=== PATIENT | female | born 1950 | race Caucasian/White ===

== ENCOUNTER 2022-08-13 08:51 | Emergency (ER) | payer OTHER, MEDICAID ==
[~2022-08-13] VITALS: Ht 165.1 cm; Wt 77.2 kg
[~2022-08-13 08:51] MED LIST: LORA-205 PO; TRAM50TA2 PO; VALS160T4 PO
[2022-08-13 09:53] LABS: Basophils # (auto) 0.1 10 ^3/uL (0-0.2); Basophils % (auto) 0.8 % (0.0-2.0); Eosinophils # (auto) 0.1 10 ^3/uL (0-0.8); Eosinophils % (auto) 1.3 % (0.0-7.0); Hemoglobin 16.2 g/dL (12.2-16.2); Lymphocytes # (auto) 2.2 10 ^3/uL (0.4-5.4); Lymphocytes % (auto) 24.4 % (10.0-50.0); Mean Corpuscular Hemoglobin 32.7 pg (28.0-32.0); Mean Corpuscular Hgb Conc. 34.4 g/dL (32.0-36.0); Mean Corpuscular Volume 95.1 fL (80.0-100.0); Monocytes # (auto) 0.8 10 ^3/uL (0-1.3); Monocytes % (auto) 9.2 % (0.0-12.0); Neutrophils # (auto) 5.7 10 ^3/uL (1.6-8.6); Neutrophils % (auto) 64.3 % (37.0-80.0); Nucleated Red Blood Cells % 0.1 %; Red Blood Cells 4.95 10^6/uL (4.0-5.20); Red Cell Distribution Width 13.7 % (11.8-14.3); White Blood Cell 8.9 10^3/uL (4.4-10.8)
[2022-08-13 10:11] LABS: Albumin 3.7 g/dL (3.4-5.0); BUN/Creatinine Ratio 14.3 (10.0-20.0); Calcium 9.7 mg/dL (8.5-10.1); Magnesium 2.3 mg/dL (1.6-2.6); Potassium 3.9 mmol/L (3.5-5.1)
[2022-08-13 10:13] LABS: Bilirubin, Total 0.5 mg/dL (0.2-1.0)
[2022-08-13] MEDS ORDERED: IPRATROPIUM BROM 0.5 MG/2.5ML INH SOL NEB ONE (10:15)
[2022-08-13] MEDS ORDERED: cefTRIAXone 1GM/50ML D5W 50 ML IV ONE (10:15)
[2022-08-13] MEDS ORDERED: methylPREDNISolone SOD SUCC 125 MG/2 ML VL IV ONE (10:15)
[2022-08-13] MEDS ORDERED: ALBUTEROL SULF 2.5 MG/0.5ML(0.5%) NEB SOLN NEB ONE (10:15)
[2022-08-13 12:31] VITALS: BP 129/61
[2022-08-13 12:46] LABS: Urine Bacteria MOD /hpf (None Seen); Urine Blood Negative /uL (Negative); Urine Mucus MODERATE (None Seen); Urine Specific Gravity 1.019 (1.001-1.035); Urine WBC 48 /hpf (0 - 5)
[2022-08-13] MEDS ORDERED: BACDST PO (14:27)
== END 2022-08-13 14:31 | disposition home or self-care (01) ==
LOC: EDUNIT# 08:51 → EDBD 08:51 → ER 08:51
DX: J40 Bronchitis, not specified as acute or chronic (principal); N39.0 Urinary tract infection, site not specified; J44.9 Chronic obstructive pulmonary disease, unspecified; F17.210 Nicotine dependence, cigarettes, uncomplicated; Z79.899 Other long term (current) drug therapy
CPT/HCPCS: 36415; 71046; 80053; 81001; 83735; 83880; 84484; 85025; 85379; 93005; 94640; 96365; 96375; 99285; J0696; J2930; J7644

== ENCOUNTER 2024-01-04 12:49 | Emergency (ER) | payer OTHER, MEDICAID ==
[~2024-01-04] VITALS: Ht 149.9 cm; Wt 125.0 kg
[~2024-01-04 12:49] MED LIST changes: +BACDST PO
--- NOTE | 2024-01-04 12:57 | ED.PDOC ---
HPI (NEURO) HPI Comments HPI: Poor Historian. 73-year-old female brought in by ambulance from home for near-syncope/dizziness episode. There was no loss of consciousness. No fall or trauma or injury. Patient took her morning medications of blood pressure medications and lorazepam. The patient went to the hair salon and then went back home. The patient had another episode of dizziness. Is non vertigo-like. Patient felt like she was going to pass out when she was standing up. Per EMS, pre-hospital course vital signs were stable. Blood sugar was normal. No neurological deficits. Denies any chest pain or shortness of breath. Vitals: Temp: 97.9 F Heart rate: 79 RR: 18 BP: 148/86 02 sat: 97% on room air PMH: HTN, hyperlipidemia, anxiety PSH: denies social history: endorses tobacco use, denies ETOH use, denies drug use medications: atorvastatin, amlodipine, valsartan, lorazepam allergies: NKDA REVIEW OF SYSTEMS: CONSTITUTIONAL: Denies acute: fever, diaphoresis, chills, generalized weakness. HEAD: Denies acute: headache, photophobia Eyes: Denies acute: Double vision, vision loss, eye pain, eye discharge. EARS: Denies acute: tinnitus, hearing loss, ear discharge, ear pain, THROAT: Denies acute: sore throat, swelling, difficulty swallowing , pain with swallowing, change in voice. NECK: Denies acute: neck pain, neck swelling, stiff neck. HEART: Denies acute : chest pain, palpitations, LUNGS: Denies acute: SOB, wheezing, cough, hemoptysis ABDOMEN: Denies acute: abdominal pain, Nausea, Vomiting, diarrhea, melena , hematemesis, hematochezia SKIN: Denies acute: rash, redness, lesions, itchiness. EXTREMITIES: Denies acute: calf pain, numbness, tingling, weakness, denies pain in extremity. Denies acute: Low back pain. Neuro: Denies acute: focal neurological deficit, motor or sensory focal neurological deficit, tremors, seizure like activity, confusion, change in mental status, loss of bowel or bladder function, cauda equina like symptoms. : Denies acute: dysuria, hematuria, flank pain, increase in urinary frequency. PSYCH: Denies acute: hallucination, suicidal ideation, homicidal ideation. FEMALE: Denies acute: abnormal vaginal bleeding, foul odor, unusual discharge. PHYSICAL EXAM: General: no acute distress, awake and alert. Head: normocephalic, atraumatic. Neck: supple, trachea is midline, no swelling. Throat: Normal phonation. Eyes:, no erythema, no purulent discharge, no proptosis, no icterus. Heart: regular rate, regular rhythm, no significant murmur appreciated. Lungs: no apparent respiratory distress, Able to speak in full sentences. No wheezing, no rhonchi, no crackles. No stridors Clear to auscultation bilaterally. Abdomen: non tender to palpation, non distended, soft, no guarding, no rebound, + bowel sounds. Neuro: Awake, Alert, oriented to name, self, situation, follows commands GCS=15. Speech is normal. Skin: no petechia, no purpura, no cyanosis, non-pale, not jaundice. Lower extremities: --trace bilateral - Pitting edema no deformity, no focal swelling, no calf TTP. Makes eye contact. moves all four extremities. Face: no apparent facial droop. Ears: Normal appearing TM b/l, PERRLA, EOM-I CN 2-12 are grossly intact, No nystagmus. No nuchal rigidity, Kernig's sign, Brudzinski's sign, no meningeal signs. 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 Was a procedure done?: No Differential Diagnosis (SZ) Seizure: N/A General Weakness: Other (Includes but not limited to thyroid disease, encephalopathy, electrolyte abnormality, sepsis, infection, intracranial pathology, drug adverse effects, arrhythmia, kidney insufficiency, ACS, CVA, malignancy, anemia, dehydration, orthostatic hypotension) X-Ray, Labs, Meds, VS Vital Signs Date Time Temp Pulse Resp B/P (MAP) Pulse Ox O2 Delivery O2 Flow Rate FiO2 11/5/24 15:29 140/70 01/04/24 15:22 81 14 95 Room Air 01/04/24 15:22 97.9 81 14 140/70 (93) 95 97.9 01/04/24 15:11 88 01/04/24 12:58 97.9 86 18 148/86 (106) 97 01/04/24 12:57 85 Lab Test 01/04/24 15:07 01/04/24 14:43 01/04/24 14:33 01/04/24 13:13 Range/Units Troponin I High Sensitivity < 3 L < 3 L < 3 L </=34 ng/L Urine Color Colorless Yellow Urine Clarity Clear Clear Urine pH 6.5 5.0-9.0 Urine Specific [place] 1.002 1.001-1.035 Urine Protein Negative Negative Urine Ketones Negative Negative Urine Blood Negative Negative /uL Urine Nitrite Negative Negative Urine Bilirubin Negative Negative Urine Urobilinogen Normal Negative mg/dL Urine Leukocyte Esterase 1+ Negative /uL Urine RBC 1 0 - 4 /hpf Urine WBC 3 0 - 5 /hpf Urine Squamous Epithelial Cells Few <5 /hpf Urine Bacteria None seen None Seen /hpf Urine Hyaline Casts Few 0 - 2 /lpf Urine Glucose Normal Normal mg/dL White Blood Count 9.5 4.4-10.8 10^3/uL Red Blood Count 4.96 4.0-5.20 10^6/uL Hemoglobin 16.0 12.2-16.2 g/dL Hematocrit 47.6 H 36.0-46.0 % Mean Corpuscular Volume 95.9 80.0-100.0 fL Mean Corpuscular Hemoglobin 32.4 H 28.0-32.0 pg Mean Corpuscular Hemoglobin Concent 33.7 32.0-36.0 g/dL Red Cell Distribution Width 13.8 11.8-14.3 % Platelet Count 215 140-450 10^3/uL Mean Platelet Volume 8.3 6.9-10.8 fL Neutrophils (%) (Auto) 57.6 37.0-80.0 % Lymphocytes (%) (Auto) 31.5 10.0-50.0 % Monocytes (%) (Auto) 8.9 0.0-12.0 % Eosinophils (%) (Auto) 1.4 0.0-7.0 % Basophils (%) (Auto) 0.6 0.0-2.0 % Neutrophils # (Auto) 5.5 1.6-8.6 10 ^3/uL Lymphocytes # (Auto) 3.0 0.4-5.4 10 ^3/uL Monocytes # (Auto) 0.8 0-1.3 10 ^3/uL Eosinophils # (Auto) 0.1 0-0.8 10 ^3/uL Basophils # (Auto) 0.1 0-0.2 10 ^3/uL Nucleated Red Blood Cells 0.1 % Sodium Level 137 136-145 mmol/L Potassium Level 3.6 3.5-5.1 mmol/L Chloride Level 107 98-107 mmol/L Carbon Dioxide Level 28 20-31 mmol/L Anion Gap 2 L 5-15 Blood Urea Nitrogen 5 L 9-23 mg/dL Creatinine 0.49 L 0.550-1.02 mg/dL Glomerular Filtration Rate Calc 99 >90 mL/min BUN/Creatinine Ratio 10.2 10.0-20.0 Serum Glucose 105 74-106 mg/dL Lactic Acid Level 1.6 0.4-2.0 mmol/L Calcium Level 10.5 H 8.7-10.4 mg/dL B-Type Natriuretic Peptide 10.91 0-100 pg/mL Current Medications Medications (Trade) Dose Ordered Sig/Leann Route Start Time Stop Time Status Last Admin Furosemide (Lasix Tablet) 20 mg ONCE ONCE PO 01/04/24 15:00 01/04/24 15:24 DC 01/04/24 15:29 [place] [id number] Ph: [phone] DIAGNOSTIC IMAGING Diagnostic Imaging Report : [id number] Signed PATIENT: THERESA ALFARO ACCT: [id number] UNIT: [id number] : 1950 LOC: ER ROOM / BED: / AGE / SEX: 73 / F ADM STATUS: REG ER SERVICE 1256 ORDERING PHYSICIAN: STEPHANIE NEW DO PROCEDURE(s): CXRP - CHEST PORTABLE REASON: dizziness episode ORDER NUMBER(s): [id number], ACCESSION NUMBER(s): [id number] CHEST RADIOGRAPH Indication:dizziness episode Technique: Single frontal view of the chest was obtained Comparison: None FINDINGS: Lines and Tubes: None Lungs: No focal consolidation. Mild interstitial prominence. Redemonstration of fullness of the right paratracheal region; unchanged from prior imaging Pleura: No effusion. No pneumothorax. Cardiomediastinal contours: Borderline cardiomegaly. Bones: No acute osseous abnormality. IMPRESSION: Mild pulmonary vascular congestion. ATED BY: SANAZ POLANCO DO DICTATED DATE/TIME: 01/04/24 1354 SIGNED BY: SANAZ POLANCO DO SIGNED DATE/TIME: 01/04/24 1354 CC: Time of 1ST Reevaluation: 19:31 Reevaluation 1ST: N/A (Patient eloped) Patient Education/Counseling: Diagnosis, Treatment Family Education/Counseling: No Family Present Comments Patient eloped Departure 1 Departure Time of Disposition: 18:55 Impression: Primary Impression: Eloped from emergency department Additional Impression: Episode of dizziness Disposition: 07 LEFT AWOL/ELOPED Condition: Stable Additional Instructions: Patient eloped Discharged With: Self Critical Care Note Critical Care Time?: No Heart Score Heart Score: Heart Score Response (Comments) Value History Slightly Suspicious 0 EKG Normal 0 Age >65 2 Risk Factors 1 or 2 risk factors 1 Troponin Normal limit 0 Total 3 I personally scribed for STEPHANIE NEW DO ([email or web address]) on 01/04/24 at 12:57. Electronically submitted by Keira Preciado ([email or web address]). I personally scribed for STEPHANIE NEW DO ([email or web address]) on 01/04/24 at 13:12. Electronically submitted by Keira Preciado ([email or web address]). I personally scribed for STEPHANIE NEW DO ([email or web address]) on 01/04/24 at 13:24. Electronically submitted by Keira Preciado ([email or web address]). I personally scribed for STEPHANIE NEW DO ([email or web address]) on 01/04/24 at 14:02. Electronically submitted by Keira Preciado ([email or web address]). I personally scribed for STEPHANIE NEW DO ([email or web address]) on 01/04/24 at 16:15. Electronically submitted by Keira Preciado ([facility]). I personally scribed for STEPHANIE NEW DO ([facility]) on 01/04/24 at 19:30. Electronically submitted by Keira Preciado ([facility] STEPHANIE NEW DO Jan 04, 2024 12:57
--- NOTE | 2024-01-04 12:59 | ECG ---
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
[2024-01-04 13:45] LABS: Basophils # (auto) 0.1 10 ^3/uL (0-0.2); Basophils % (auto) 0.6 % (0.0-2.0); Eosinophils # (auto) 0.1 10 ^3/uL (0-0.8); Eosinophils % (auto) 1.4 % (0.0-7.0); Hematocrit 47.6 % (36.0-46.0); Lymphocytes % (auto) 31.5 % (10.0-50.0); Mean Corpuscular Hemoglobin 32.4 pg (28.0-32.0); Mean Corpuscular Hgb Conc. 33.7 g/dL (32.0-36.0); Mean Corpuscular Volume 95.9 fL (80.0-100.0); Monocytes # (auto) 0.8 10 ^3/uL (0-1.3); Monocytes % (auto) 8.9 % (0.0-12.0); Neutrophils # (auto) 5.5 10 ^3/uL (1.6-8.6); Neutrophils % (auto) 57.6 % (37.0-80.0); Nucleated Red Blood Cells % 0.1 %; Platelet Count (auto) 215 10^3/uL (140-450); Red Blood Cells 4.96 10^6/uL (4.0-5.20); Red Cell Distribution Width 13.8 % (11.8-14.3); White Blood Cell 9.5 10^3/uL (4.4-10.8)
[2024-01-04 13:54] LABS: Chloride 107 mmol/L (98-107); Potassium 3.6 mmol/L (3.5-5.1); Sodium 137 mmol/L (136-145)
[2024-01-04 13:55] LABS: Anion Gap 2 (5-15); Calcium 10.5 mg/dL (8.7-10.4); Carbon Dioxide 28 mmol/L (20-31)
--- NOTE | 2024-01-04 13:56 | DVH ---
CHEST RADIOGRAPH Indication:dizziness episode Technique: Single frontal view of the chest was obtained Comparison: None FINDINGS: Lines and Tubes: None Lungs: No focal consolidation. Mild interstitial prominence. Redemonstration of fullness of the right paratracheal region; unchanged from prior imaging Pleura: No effusion. No pneumothorax. Cardiomediastinal contours: Borderline cardiomegaly. Bones: No acute osseous abnormality. IMPRESSION: Mild pulmonary vascular congestion.
[2024-01-04 14:00] LABS: BUN/Creatinine Ratio 10.2 (10.0-20.0); Blood Urea Nitrogen 5 mg/dL (9-23); Glucose 105 mg/dL (74-106)
[2024-01-04 14:33] LABS: Urine Bacteria None Seen /hpf (None Seen)
[2024-01-04 14:44] LABS: Urine Blood Negative /uL (Negative); Urine Clarity Clear (Clear); Urine Color Colorless (Yellow); Urine Hyaline Cast FEW /lpf (0 - 2); Urine Protein, UAD Negative (Negative); Urine Specific Gravity 1.002 (1.001-1.035); Urine Urobilinogen Normal (Negative); Urine WBC 3 /hpf (0 - 5); Urine pH 6.5 (5.0-9.0)
[2024-01-04 15:22] VITALS: BP 140/70; PULSE 81; RESP 14; TEMP 97.9; O2SAT 95
[2024-01-04] MEDS: FUROSEMIDE 20 MG TAB PO ONE (15:29)
--- NOTE | 2024-01-05 09:32 | ECG ---
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
== END 2024-01-04 19:32 | disposition left against medical advice (07) ==
LOC: EDBD 12:49 → ER 12:52
DX: R42 Dizziness and giddiness (principal); I10 Essential (primary) hypertension; E78.5 Hyperlipidemia, unspecified; F41.9 Anxiety disorder, unspecified; Z88.8 Allergy status to other drugs, medicaments and biological substances
CPT/HCPCS: 36415; 71045; 80048; 81001; 83605; 83880; 84484; 85025; 93005

== ENCOUNTER 2024-01-08 11:25 | Inpatient (IN) | payer OTHER, MEDICAID ==
[~2024-01-08] VITALS: Ht 165.1 cm; Wt 83.9 kg
[2024-01-08 11:40] VITALS: PULSE 86; RESP 16; O2SAT 98
--- NOTE | 2024-01-08 11:46 | ED.PDOC ---
HPI Comments 73Y F with PMHx HTN, HLD, CHF, and anxiety presents to ED via EMS for chief complaint palpitations. Pt denies SOB and chest pain. Pt left [facility] ER on 01/04/2024 AMA with dx acute mild pulmonary congestion. Pt began to take Lasix this morning. Pt was advised to call 911 by PCP if palpitations lasted longer than 10mins. Upon EMS arrival, HR 96 and BS 130. Pt presents to ED with bilateral leg edema and states it was previously up to her thigh. Pt was previously taking HCTZ but now started Lasix as well. Pt smokes cigarettes and drinks alcohol occasionally. No illicit drug use. No known allergies. Time Seen by MD: 11:30 Primary Care Provider: CHANG Navarrete Notes: Medications, Allergies Allergies: Coded Allergies: NO KNOWN ALLERGIES (Unverified , 12/15/11) Home Meds Active Scripts Sulfamethoxazole W/Trimethopri (Bactrim Ds Tablet) 1 Tab Tb, 1 TAB PO BID for 5 Days, #10 TAB Prov:YULISSA KOO MD 08/13/22 Reported Medications Lorazepam (Ativan) 1 Mg Tab, 1 MG PO PRN 12/15/11 Tramadol Hcl (Tramadol Hcl) 50 Mg Tab, 50 MG PO HS 12/15/11 Valsartan (Diovan) 160 Mg Tab, 160 MG PO DAILY 12/15/11 Information Source: Patient, Emergency Med Personnel Mode of Arrival: EMS Brought in by: EMS Severity: Mild Timing: Hours Duration: Since onset Prehospital treatment: None Onset: At Rest, With Light Exertion Cardiac Risk Factors: Smoker, Hyperlipidemia, HTN PE Risk Factors: None History of: None Modifying Factors: Nothing Associated Signs and Symptoms: Palpitations Past Medical History PAST MEDICAL HISTORY: CHF, COPD, High Lipids, HTN Surgical History: Denies all surgeries 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 Family History Family History: Unobtainable Social History Smoker: Cigarettes, Less Than 1 Pack/Day Alcohol: Occasionally Drugs: Denies Drug Use Lives In: Home Constitutional: denies: chills, diaphoresis, fatigue, fever, malaise, sweats, weakness, others EENTM: denies: blurred vision, double vision, ear bleeding, ear discharge, ear drainage, ear pain, ear ringing, eye pain, eye redness, hearing loss, mouth pain, mouth swelling, nasal discharge, nose bleeding, nose congestion, nose pain, photophobia, tearing, throat pain, throat swelling, voice changes, others Respiratory: denies: cough, hemoptysis, orthopnea, SOB at rest, shortness of breath, SOB with excertion, stridor, wheezing, others Cardiovascular: reports: edema, palpitations; denies: chest pain, dizzy spells, diaphoresis, Dyspnea on exertion, irregular heart beat, left arm pain, lightheadedness, PND, syncope, others Gastrointestinal: denies: abdomen distended, abdominal pain, blood streaked bowels, constipated, diarrhea, dysphagia, difficulty swallowing, hematemesis, melena, nausea, poor appetite, poor fluid intake, rectal bleeding, rectal pain, vomiting, others Genitourinary: denies: abnormal vagina bleeding, burning, dyspareunia, dysuria, flank pain, frequency, hematuria, incontinence, pain, , vagina discharge, urgency, others Neurological: denies: dizziness, fainting, headache, left sided numbness, left sided weakness, numbness, paresthesia, pre-existing deficit, right sided numbness, right sided weakness, seizure, speech problems, tingling, tremors, weakness, others Musculoskeletal: denies: back pain, gout, joint pain, joint swelling, muscle pain, muscle stiffness, neck pain, others Integumetry: denies: bruises, change in color, change in hair/nails, dryness, laceration, lesions, lumps, rash, wounds, others Allergic/Immunocompromised: denies: Difficulty Healing, Frequent Infections, Hives, Itching, others Hematologic/Lymphatic: denies: anemia, blood clots, easy bleeding, easy bruising, swollen glands, others Endocrine: denies: excessive hunger, excessive sweating, excessive thirst, excessive urination, flushing, intolerance to cold, intolerance to heat, unexplained weight gain, unexplained weight loss, others Psychiatric: denies: anxiety, bipolar disorder, depression, hopeless, panic disorder, schizophrenia, sleepless, suicidal, others All Other Systems: Reviewed and Negative Physical Exam General Appearance: No Apparent Distress, Normal HEENT: Normal ENT Inspection, Pharynx Normal, TMs Normal Neck: Full Range of Motion, Non-Tender, Normal, Normal Inspection Respiratory: Chest Non-Tender, Crackles (left lower lung), No Accessory Muscle Use, No Respiratory Distress Cardiovascular: No JVD, No Murmur, No Gallop, Normal Peripheral Pulses, Regular Rate/Rhythm Breast Exam: Deferred Gastrointestinal: No Organomegaly, Non Tender, No Pulsatile Mass, Normal Bowel Sounds, Soft Genitalia: Deferred Pelvic: Deferred Rectal: Deferred Extremities: Leg edema (bilateral lower extremities: trace pitting edema), No calf tenderness, Normal capillary refill, Normal range of motion, Non-tender Musculoskeletal : Apperance: Normal Neurologic: Alert, communications engineer II-XII nml as Tested, No Motor Deficits, Normal Affect, Normal Mood, No Sensory Deficits Cerebellar Function: Normal Reflexes: Normal Skin: Dry, Normal Color, Warm Lymphatic: No Adenopathy EKG EKG : Comments Rate of 86, inverted T-waves in 3 and AVF, normal sinus rhythm Was a procedure done? Was a procedure done?: No CP Differential Dx Differential Diagnosis: A-fib, Anxiety / Panic Attack, Atrial Dysrhythmia, Heart Failure, PSVT Differential Diagnosis: CHF X-Ray, Labs, Meds, VS Vital Signs Date Time Temp Pulse Resp B/P (MAP) Pulse Ox O2 Delivery O2 Flow Rate FiO2 01/08/24 12:36 77 01/08/24 12:14 120/59 01/08/24 11:40 86 16 98 Room Air* 0 21 01/08/24 11:40 98.3 86 16 120/59 (79) 98 98.3 01/08/24 11:39 98.6 96 18 122/77 (92) 96 01/08/24 11:27 86 Lab Test 01/08/24 12:50 01/08/24 12:02 01/08/24 11:47 Range/Units Troponin I High Sensitivity < 3 L < 3 L </=34 ng/L White Blood Count 9.7 4.4-10.8 10^3/uL Red Blood Count 5.05 4.0-5.20 10^6/uL Hemoglobin 16.6 H 12.2-16.2 g/dL Hematocrit 48.3 H 36.0-46.0 % Mean Corpuscular Volume 95.6 80.0-100.0 fL Mean Corpuscular Hemoglobin 32.9 H 28.0-32.0 pg Mean Corpuscular Hemoglobin Concent 34.4 32.0-36.0 g/dL Red Cell Distribution Width 13.6 11.8-14.3 % Platelet Count 219 140-450 10^3/uL Mean Platelet Volume 8.6 6.9-10.8 fL Neutrophils (%) (Auto) 54.6 37.0-80.0 % Lymphocytes (%) (Auto) 33.1 10.0-50.0 % Monocytes (%) (Auto) 10.6 0.0-12.0 % Eosinophils (%) (Auto) 0.9 0.0-7.0 % Basophils (%) (Auto) 0.8 0.0-2.0 % Neutrophils # (Auto) 5.3 1.6-8.6 10 ^3/uL Lymphocytes # (Auto) 3.2 0.4-5.4 10 ^3/uL Monocytes # (Auto) 1.0 0-1.3 10 ^3/uL Eosinophils # (Auto) 0.1 0-0.8 10 ^3/uL Basophils # (Auto) 0.1 0-0.2 10 ^3/uL Nucleated Red Blood Cells 0.1 % Sodium Level 137 136-145 mmol/L Potassium Level 3.5 3.5-5.1 mmol/L Chloride Level 103 98-107 mmol/L Carbon Dioxide Level 30 20-31 mmol/L Anion Gap 4 L 5-15 Blood Urea Nitrogen 6 L 9-23 mg/dL Creatinine 0.52 L 0.550-1.02 mg/dL Glomerular Filtration Rate Calc 98 >90 mL/min BUN/Creatinine Ratio 11.5 10.0-20.0 Serum Glucose 117 H 74-106 mg/dL Calcium Level 10.8 H 8.7-10.4 mg/dL Magnesium Level 2.0 1.6-2.6 mg/dL Total Bilirubin 0.5 0.2-1.0 mg/dL Aspartate Amino Transferase (AST) 18 13-40 U/L Alanine Aminotransferase (ALT) 21 7-40 U/L Alkaline Phosphatase 146 H 46-116 U/L B-Type Natriuretic Peptide 7.13 0-100 pg/mL Total Protein 7.0 5.7-8.2 g/dL Albumin 4.3 3.2-4.8 g/dL Thyroid Stimulating Hormone (TSH) 1.30 0.55-4.78 uIU/mL Urine Color Colorless Yellow Urine Clarity Clear Clear Urine pH 6.5 5.0-9.0 Urine Specific [place] 1.002 1.001-1.035 Urine Protein Negative Negative Urine Ketones Negative Negative Urine Blood Negative Negative /uL Urine Nitrite Negative Negative Urine Bilirubin Negative Negative Urine Urobilinogen Normal Negative mg/dL Urine Leukocyte Esterase Trace Negative /uL Urine RBC 1 0 - 4 /hpf Urine WBC 3 0 - 5 /hpf Urine Squamous Epithelial Cells Few <5 /hpf Urine Bacteria Few H None Seen /hpf Urine Glucose Normal Normal mg/dL Current Medications Medications (Trade) Dose Ordered Sig/Leann Route Start Time Stop Time Status Last Admin Furosemide (Lasix Injection) 40 mg ONCE ONCE IV 01/08/24 11:30 01/08/24 11:42 DC 01/08/24 12:14 [place] [address] Ph: [phone] DIAGNOSTIC IMAGING Diagnostic Imaging Report : [id number] Signed PATIENT: THERESA ALFARO ACCT: [id number] UNIT: [id number] : 1950 LOC: ER ROOM / BED: / AGE / SEX: 73 / F ADM STATUS: REG ER SERVICE 1129 ORDERING PHYSICIAN: ROMY STEPHENS MD PROCEDURE(s): CXR2 - CHEST TWO VIEWS ROUTINE REASON: palpitations ORDER NUMBER(s): [id number], ACCESSION NUMBER(s): [id number] Procedure: XY CHEST TWO VIEWS ROUTINE 01/08/2024 11:48 AM Indication: palpitations. Comparison: XY CHEST TWO VIEWS ROUTINE on DOS: 08/13/22 TECHNIQUE: XY CHEST TWO VIEWS ROUTINE FINDINGS: Medical devices: None. Cardiomediastinal: The heart is normal in size. Pulmonary vasculature is within normal limits. Atherosclerotic calcification of the aortic arch noted. Lungs: No focal pulmonary opacity is seen. The costophrenic angles are clear. No pneumothorax. 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 IMPRESSION: 1. No acute cardiopulmonary disease. ATED BY: FATUMA RAMSAY MD DICTATED DATE/TIME: 01/08/241207 SIGNED BY: FATUMA RAMSAY MD SIGNED DATE/TIME: 01/08/241207 CC: 73-year-old female presents here with palpitations. She states that any time she exerts herself she begins to have palpitations. Blood work has been done including troponin which is negative. EKG demonstrates inverted T-waves in inferior leads. At this time I re-evaluated the patient and patient was doing okay but she states she went to the bathroom and immediately had increased palpitations. At this time I am concerned about possible arrhythmia as well as acute coronary syndrome. Hospitalist has been consulted for admission. Time of 1ST Reevaluation: 12:00 Reevaluation 1ST: Unchanged Time of 2ND Reevaluation: 14:14 Reevaluation 2ND: Unchanged Patient Education/Counseling: Diagnosis, Treatment Family Education/Counseling: No Family Present Departure 1 Departure Time of Disposition: 13:30 Impression: Primary Impression: Palpitations Disposition: ADMITTED INPATIENT Condition: Guarded Critical Care Note Critical Care Time?: No Stability Stability form required: No Heart Score Heart Score: Heart Score Response (Comments) Value History Moderate Suspicious 1 EKG Repolarization Disturb 1 Age >65 2 Risk Factors >3 or Hx ASHD 2 Troponin Normal limit 0 Total 6 I personally scribed for ROMY STEPHENS MD ([email or web address]) on 01/08/24 at 11:45. Electronically submitted by Maryuri Brandon ([employer]). I personally scribed for ROMY STEPHENS MD ([email or web address]) on 01/08/24 at 13:34. Electronically submitted by Maryuri Brandon ([employer]). I personally scribed for ROMY STEPHENS MD ([email or web address]) on 01/08/24 at 13:39. Electronically submitted by Maryuri Brandon ([employer]). ROMY STEPHENS MD Jan 08, 2024 11:45
--- NOTE | 2024-01-08 12:10 | DVH ---
Procedure: XY CHEST TWO VIEWS ROUTINE 01/08/2024 11:48 AM Indication: palpitations. Comparison: XY CHEST TWO VIEWS ROUTINE on DOS: 08/13/22 TECHNIQUE: XY CHEST TWO VIEWS ROUTINE FINDINGS: Medical devices: None. Cardiomediastinal: The heart is normal in size. Pulmonary vasculature is within normal limits. Athero sclerotic calcification of the aortic arch noted. Lungs: No focal pulmonary opacity is seen. The costophrenic angles are clear. No pneumothorax. Bones/soft tissues: Flowing anterior osteophytes are seen at least 4 consecutive levels with preserva tion of disc heighst compatible with diffuse idiopathic skeletal hyperostosis of the thoracic spine. IMPRESSION: 1. No acute cardiopulmonary disease.
[2024-01-08] MEDS: FUROSEMIDE 40 MG/4 ML VIAL IV ONE (12:14)
[2024-01-08 12:23] LABS: Basophils # (auto) 0.1 10 ^3/uL (0-0.2); Basophils % (auto) 0.8 % (0.0-2.0); Eosinophils # (auto) 0.1 10 ^3/uL (0-0.8); Eosinophils % (auto) 0.9 % (0.0-7.0); Hematocrit 48.3 % (36.0-46.0); Hemoglobin 16.6 g/dL (12.2-16.2); Lymphocytes # (auto) 3.2 10 ^3/uL (0.4-5.4); Lymphocytes % (auto) 33.1 % (10.0-50.0); Mean Corpuscular Hemoglobin 32.9 pg (28.0-32.0); Mean Corpuscular Hgb Conc. 34.4 g/dL (32.0-36.0); Mean Corpuscular Volume 95.6 fL (80.0-100.0); Monocytes % (auto) 10.6 % (0.0-12.0); Neutrophils # (auto) 5.3 10 ^3/uL (1.6-8.6); Neutrophils % (auto) 54.6 % (37.0-80.0); Nucleated Red Blood Cells % 0.1 %; Platelet Count (auto) 219 10^3/uL (140-450); Red Blood Cells 5.05 10^6/uL (4.0-5.20); Red Cell Distribution Width 13.6 % (11.8-14.3); White Blood Cell 9.7 10^3/uL (4.4-10.8)
[2024-01-08 12:33] LABS: Urine Bacteria FEW /hpf (None Seen); Urine Blood Negative /uL (Negative); Urine Clarity Clear (Clear); Urine Color Colorless (Yellow); Urine Protein, UAD Negative (Negative); Urine Specific Gravity 1.002 (1.001-1.035); Urine Urobilinogen Normal (Negative); Urine WBC 3 /hpf (0 - 5); Urine pH 6.5 (5.0-9.0)
[2024-01-08 12:47] LABS: Alanine Aminotransferase 21 U/L (7-40); Albumin 4.3 g/dL (3.2-4.8); Alkaline Phosphatase 146 U/L (46-116); Anion Gap 4 (5-15); Aspartate Aminotransferase 18 U/L (13-40); BUN/Creatinine Ratio 11.5 (10.0-20.0); Blood Urea Nitrogen 6 mg/dL (9-23); Calcium 10.8 mg/dL (8.7-10.4); Carbon Dioxide 30 mmol/L (20-31); Chloride 103 mmol/L (98-107); Glucose 117 mg/dL (74-106); Potassium 3.5 mmol/L (3.5-5.1); Sodium 137 mmol/L (136-145)
[2024-01-08 12:48] LABS: Bilirubin, Total 0.5 mg/dL (0.2-1.0)
[2024-01-08] MEDS ORDERED: NITROGLYCERIN 0.4 MG SL TAB SL PRN ×2 (18:30)
[2024-01-08] MEDS ORDERED: ACETAMINOPHEN 325 MG TAB PO PRN (18:30)
[2024-01-08] MEDS ORDERED: ONDANSETRON HCL 4 MG/2 ML VIAL IV PRN (18:30)
[2024-01-08] MEDS ORDERED: MORPHINE SULFATE INJ 2 MG/ml SYRG IV PRN (18:30)
[2024-01-08] MEDS ORDERED: MORPHINE SULFATE 4 MG/ML SYR/VIAL IV PRN (18:30)
--- NOTE | 2024-01-08 19:36 | DVHHP2 ---
History of Present Illness Reason for Visit: Palpations History of Present Illness 73 yo pmh htn, hld, chf anxiety patient in no acute distress had palpations and shortness of breath and suspected uti Cardiovascular: AFIB, CAD Review of Systems Constitutional: No: Fever, Chills, Sweats, Weakness, Malaise, Other Eyes: No: Pain, Vision change, Conjunctivae inflammation, Eyelid inflammation, Other, Redness ENT: No: Ear pain, Ear discharge, Nose pain, Nose discharge, Nose congestion, Mouth pain, Mouth swelling, Throat pain, Throat swelling, Other Respiratory: Shortness of breath Cardiovascular: Chest Pain, Palpitations; No: Orthopnea, Paroxysmal Noc. Dyspnea, Edema, Lt Headedness, Other Gastrointestinal: No: Nausea, Vomiting, Abdominal Pain, Diarrhea, Constipation, Melena, Hematochezia, Other Genitourinary: No Dysuria, No Frequency, No Incontinence, No Hematuria, No Retention, No Other Musculoskeletal: No: other, neck pain, shoulder pain, arm pain, back pain, hand pain, leg pain, foot pain Skin: No: Rash, Lesions, Jaundice, Bruising, Other Neurological: No: Weakness, Numbness, Incoordination, Change in speech, Confusion, Seizures, Other Allergies: Coded Allergies: NO KNOWN ALLERGIES (Unverified , 12/15/11) Medications Current Medications Medications Dose Ordered Sig/Leann Route Start Time Stop Time Status Last Admin Dose Admin Aspirin 81 mg DAILY PO 01/09/24 10:00 Clopidogrel Bisulfate 75 mg DAILY PO 01/09/24 10:00 Atorvastatin Calcium 40 mg HS PO 01/08/24 22:00 Metoprolol Tartrate 12.5 mg Q12HR PO 01/08/24 22:00 Lisinopril 5 mg DAILY PO 01/09/24 10:00 Morphine Sulfate 2 mg Q30MP PRN IV 01/08/24 18:30 Acetaminophen 650 mg Q6HP PRN PO 01/08/24 18:30 Docusate Sodium 100 mg DAILY PO 01/09/24 10:00 Nitroglycerin 0.4 mg Q5MINP PRN SL 01/08/24 18:30 UNV Ondansetron HCl 4 mg Q4HP PRN IV 01/08/24 18:30 Nitroglycerin 0.4 mg Q5MINP PRN SL 01/08/24 18:30 Morphine Sulfate 2 mg Q30M PRN IV 01/08/24 18:30 UNV Ceftriaxone Sodium 50 ml @ 100 mls/hr DAILY IV 01/09/24 10:00 Exam Vital Signs Vital Signs Date Time Temp Pulse Resp B/P (MAP) Pulse Ox O2 Delivery O2 Flow Rate FiO2 01/08/24 18:10 97.9 87 22 121/60 (80) 95 97.9 01/08/24 11:40 Room Air* 0 21 General Appearance: Alert, Oriented X3 HEENT: Atraumatic, PERRLA Respiratory: Clear to auscultation Cardiovascular: Regular rate Abdominal: Normal bowel sounds, Soft Extremities: No clubbing, No cyanosis Skin: No rashes, No breakdown Neuro: Normal gait, Normal speech Psych/Mental Status: Mood NL Labs/Xrays Labs Test 01/08/24 12:50 01/08/24 12:02 01/08/24 11:47 Range/Units Troponin I High Sensitivity < 3 L </=34 ng/L White Blood Count 9.7 4.4-10.8 10^3/uL Red Blood Count 5.05 4.0-5.20 10^6/uL Hemoglobin 16.6 H 12.2-16.2 g/dL Hematocrit 48.3 H 36.0-46.0 % Mean Corpuscular Volume 95.6 80.0-100.0 fL Mean Corpuscular Hemoglobin 32.9 H 28.0-32.0 pg Mean Corpuscular Hemoglobin Concent 34.4 32.0-36.0 g/dL Red Cell Distribution Width 13.6 11.8-14.3 % Platelet Count 219 140-450 10^3/uL Mean Platelet Volume 8.6 6.9-10.8 fL Neutrophils (%) (Auto) 54.6 37.0-80.0 % Lymphocytes (%) (Auto) 33.1 10.0-50.0 % Monocytes (%) (Auto) 10.6 0.0-12.0 % Eosinophils (%) (Auto) 0.9 0.0-7.0 % Basophils (%) (Auto) 0.8 0.0-2.0 % Neutrophils # (Auto) 5.3 1.6-8.6 10 ^3/uL Lymphocytes # (Auto) 3.2 0.4-5.4 10 ^3/uL Monocytes # (Auto) 1.0 0-1.3 10 ^3/uL Eosinophils # (Auto) 0.1 0-0.8 10 ^3/uL Basophils # (Auto) 0.1 0-0.2 10 ^3/uL Nucleated Red Blood Cells 0.1 % Sodium Level 137 136-145 mmol/L Potassium Level 3.5 3.5-5.1 mmol/L Chloride Level 103 98-107 mmol/L Carbon Dioxide Level 30 20-31 mmol/L Anion Gap 4 L 5-15 Blood Urea Nitrogen 6 L 9-23 mg/dL Creatinine 0.52 L 0.550-1.02 mg/dL Glomerular Filtration Rate Calc 98 >90 mL/min BUN/Creatinine Ratio 11.5 10.0-20.0 Serum Glucose 117 H 74-106 mg/dL Calcium Level 10.8 H 8.7-10.4 mg/dL Magnesium Level 2.0 1.6-2.6 mg/dL Total Bilirubin 0.5 0.2-1.0 mg/dL Aspartate Amino Transferase (AST) 18 13-40 U/L Alanine Aminotransferase (ALT) 21 7-40 U/L Alkaline Phosphatase 146 H 46-116 U/L B-Type Natriuretic Peptide 7.13 0-100 pg/mL Total Protein 7.0 5.7-8.2 g/dL Albumin 4.3 3.2-4.8 g/dL Thyroid Stimulating Hormone (TSH) 1.30 0.55-4.78 uIU/mL Urine Color Colorless Yellow Urine Clarity Clear Clear Urine pH 6.5 5.0-9.0 Urine Specific [place] 1.002 1.001-1.035 Urine Protein Negative Negative Urine Ketones Negative Negative Urine Blood Negative Negative /uL Urine Nitrite Negative Negative Urine Bilirubin Negative Negative Urine Urobilinogen Normal Negative mg/dL Urine Leukocyte Esterase Trace Negative /uL Urine RBC 1 0 - 4 /hpf Urine WBC 3 0 - 5 /hpf Urine Squamous Epithelial Cells Few <5 /hpf Urine Bacteria Few H None Seen /hpf Urine Glucose Normal Normal mg/dL Assessment/Plan Assessment/Plan Admit Tele Chest Pain acs protocol trops x3 UTI iv abx iv hydration HTN c/w home meds Plan discussed with: Patient My Orders Orders - DOMONIQUE COTTON MD Procedure Category Date Status Time Admit ADMIT 01/08/24 Transmitted 18:17 Code Status CODE 01/08/24 Transmitted 18:17 Vital Signs MARCELO 01/08/24 In Process 18:17 Cardiac DIET 01/08/24 Transmitted Diet-2gna,Lofat,Lochol Dinner Aspirin Tablet PHA 01/09/24 In Process 10:00 Clopidogrel Bisulfate PHA 01/09/24 In Process (Plavix) 10:00 Atorvastatin (Lipitor) PHA 01/08/24 In Process 22:00 Metoprolol Tartrate PHA 01/08/24 In Process Tablet (Lopressor Ta 22:00 Lisinopril Tablet PHA 01/09/24 In Process (Zestril Tablet) 10:00 Morphine Sulfate PHA 01/08/24 In Process Injection 18:30 Acetaminophen Tablet PHA 01/08/24 In Process (Tylenol Tablet) 18:30 Docusate Sodium PHA 01/09/24 In Process Capsule (Colace 10:00 Complete Blood Count LAB 01/09/24 Verified 04:00 Basic Metabolic Panel LAB 01/09/24 Verified 04:00 Ondansetron Hcl PHA 01/08/24 In Process (Zofran) 18:30 Electrocardigram EKG 01/08/24 Logged 18:17 Troponin-I Hs LAB 01/08/24 Logged 18:17 Cardiac MARCELO 01/08/24 In Process Rehabilitation - Outpa Emergency Dysrhythmia [facility] 01/08/24 In Process Protocol 18:17 Rhythm Strips Once [facility] 01/08/24 In Process Every Shift 18:17 Oxygen By Nasal RT 01/08/24 Transmitted Cannula 18:17 Notify Md Of Changes [facility] 01/08/24 In Process From Base 18:17 Back Up Worker For [facility] 01/08/24 In Process 24 Hours 18:17 Nitroglycerin PHA 01/08/24 In Process Sublingual (Ntrostat 18:30 Stat Ekg For Chest MARCELO 01/08/24 In Process Pain 18:17 Ceftriaxone 1gm/50ml PHA 01/09/24 In Process D5w (Rocephin) 10:00 Problem List: (1) UTI (urinary tract infection) (2) Palpitations (3) Episode of dizziness (4) Bronchitis Date of Service: Jan 08, 2024 Billing Provider: DOMONIQUE COTTON MD Common Visit Codes: [id number] INP/OBS CARE (HIGH) DOMONIQUE COTTON MD Jan 08, 2024 19:36
[2024-01-08 20:11] VITALS: PULSE 85; RESP 20; O2SAT 98
[2024-01-08] MEDS: METOPROLOL TARTRATE 25 MG TAB PO SCH (22:00)
[2024-01-08] MEDS: ATORVASTATIN 20 MG TAB PO SCH (22:00)
[2024-01-08 22:33] VITALS: BP 116/68; PULSE 85; RESP 18; TEMP 98.1; O2SAT 96
[2024-01-08] MEDS ORDERED: ATOR40TA52 PO (22:56)
[2024-01-08 23:00] VITALS: RESP 18; TEMP 98.1; O2SAT 96
[2024-01-09 01:00] VITALS: BP 118/55; PULSE 89; RESP 19; TEMP 98.7; O2SAT 94
[2024-01-09] MEDS ORDERED: AMLO1TAB22 PO (03:15)
[2024-01-09] MEDS ORDERED: FURO1TAB33 PO (04:42)
[2024-01-09 05:00] VITALS: BP 115/55; PULSE 80; RESP 18; TEMP 98.5; O2SAT 94
[2024-01-09 06:18] LABS: Basophils # (auto) 0 10 ^3/uL (0-0.2); Basophils % (auto) 0.5 % (0.0-2.0); Eosinophils # (auto) 0.1 10 ^3/uL (0-0.8); Hematocrit 45.8 % (36.0-46.0); Hemoglobin 15.9 g/dL (12.2-16.2); Lymphocytes % (auto) 24.9 % (10.0-50.0); Mean Corpuscular Hemoglobin 32.9 pg (28.0-32.0); Mean Corpuscular Hgb Conc. 34.6 g/dL (32.0-36.0); Monocytes # (auto) 0.9 10 ^3/uL (0-1.3); Monocytes % (auto) 11.4 % (0.0-12.0); Neutrophils # (auto) 4.9 10 ^3/uL (1.6-8.6); Neutrophils % (auto) 62.2 % (37.0-80.0); Nucleated Red Blood Cells % 0.1 %; Platelet Count (auto) 203 10^3/uL (140-450); Red Blood Cells 4.83 10^6/uL (4.0-5.20); Red Cell Distribution Width 13.6 % (11.8-14.3); White Blood Cell 7.9 10^3/uL (4.4-10.8)
[2024-01-09 06:24] LABS: Chloride 102 mmol/L (98-107); Potassium 2.9 mmol/L (3.5-5.1); Sodium 138 mmol/L (136-145)
[2024-01-09 06:25] LABS: Anion Gap 6 (5-15); Calcium 10.5 mg/dL (8.7-10.4); Carbon Dioxide 30 mmol/L (20-31)
[2024-01-09 06:30] LABS: Blood Urea Nitrogen 7 mg/dL (9-23); Glucose 144 mg/dL (74-106)
[2024-01-09 08:05] VITALS: PULSE 84; RESP 20; O2SAT 91
[2024-01-09 08:36] VITALS: BP 111/69; PULSE 84; RESP 20; TEMP 98; O2SAT 91
[2024-01-09] MEDS: ASPirin 81 mg TAB PO SCH (10:00)
[2024-01-09] MEDS: DOCUSATE SOD 100 MG CAP PO SCH (10:00)
[2024-01-09] MEDS: cefTRIAXone 1GM/50ML D5W 50 ML IV SCH (10:00)
[2024-01-09] MEDS ORDERED: LISINOPRIL 5 MG TAB PO SCH (10:00)
[2024-01-09] MEDS: CLOPIDOGREL BISULFATE 75 MG TAB PO SCH (10:00)
[2024-01-09] MEDS: amLODIPine BESYLATE 5 MG TAB PO SCH (10:07)
[2024-01-09] MEDS: VALSARTAN 80 MG TAB PO SCH (10:44)
[2024-01-09] MEDS ORDERED: POTA-36 PO (10:59)
--- NOTE | 2024-01-09 11:06 | DVHDS2 ---
Discharge Summary Date of Admission Jan 08, 2024 at 18:17 Date of Discharge: Jan 09, 2024 Labs/Diagnostic Data: Laboratory Results Test 01/09/24 05:12 01/08/24 19:25 01/08/24 12:02 01/08/24 11:47 White Blood Count 7.9 10^3/uL (4.4-10.8) Red Blood Count 4.83 10^6/uL (4.0-5.20) Hemoglobin 15.9 g/dL (12.2-16.2) Hematocrit 45.8 % (36.0-46.0) Mean Corpuscular Volume 95.0 fL (80.0-100.0) Mean Corpuscular Hemoglobin 32.9 pg (28.0-32.0) Mean Corpuscular Hemoglobin Concent 34.6 g/dL (32.0-36.0) Red Cell Distribution Width 13.6 % (11.8-14.3) Platelet Count 203 10^3/uL (140-450) Mean Platelet Volume 8.9 fL (6.9-10.8) Neutrophils (%) (Auto) 62.2 % (37.0-80.0) Lymphocytes (%) (Auto) 24.9 % (10.0-50.0) Monocytes (%) (Auto) 11.4 % (0.0-12.0) Eosinophils (%) (Auto) 1.0 % (0.0-7.0) Basophils (%) (Auto) 0.5 % (0.0-2.0) Neutrophils # (Auto) 4.9 10 ^3/uL (1.6-8.6) Lymphocytes # (Auto) 2.0 10 ^3/uL (0.4-5.4) Monocytes # (Auto) 0.9 10 ^3/uL (0-1.3) Eosinophils # (Auto) 0.1 10 ^3/uL (0-0.8) Basophils # (Auto) 0 10 ^3/uL (0-0.2) Nucleated Red Blood Cells 0.1 % Sodium Level 138 mmol/L (136-145) Potassium Level 2.9 mmol/L (3.5-5.1) Chloride Level 102 mmol/L (98-107) Carbon Dioxide Level 30 mmol/L (20-31) Anion Gap 6 (5-15) Blood Urea Nitrogen 7 mg/dL (9-23) Creatinine 0.54 mg/dL (0.550-1.02) Glomerular Filtration Rate Calc 97 mL/min (>90) BUN/Creatinine Ratio 13.0 (10.0-20.0) Serum Glucose 144 mg/dL (74-106) Calcium Level 10.5 mg/dL (8.7-10.4) Troponin I High Sensitivity < 3 ng/L (</=34) Magnesium Level 2.0 mg/dL (1.6-2.6) Total Bilirubin 0.5 mg/dL (0.2-1.0) Aspartate Amino Transferase (AST) 18 U/L (13-40) Alanine Aminotransferase (ALT) 21 U/L (7-40) Alkaline Phosphatase 146 U/L (46-116) B-Type Natriuretic Peptide 7.13 pg/mL (0-100) Total Protein 7.0 g/dL (5.7-8.2) Albumin 4.3 g/dL (3.2-4.8) Thyroid Stimulating Hormone (TSH) 1.30 uIU/mL (0.55-4.78) Urine Color Colorless (Yellow) Urine Clarity Clear (Clear) Urine pH 6.5 (5.0-9.0) Urine Specific [place] 1.002 (1.001-1.035) Urine Protein Negative (Negative) Urine Ketones Negative (Negative) Urine Blood Negative /uL (Negative) Urine Nitrite Negative (Negative) Urine Bilirubin Negative (Negative) Urine Urobilinogen Normal mg/dL (Negative) Urine Leukocyte Esterase Trace /uL (Negative) Urine RBC 1 /hpf (0 - 4) Urine WBC 3 /hpf (0 - 5) Urine Squamous Epithelial Cells Few /hpf (<5) Urine Bacteria Few /hpf (None Seen) Urine Glucose Normal mg/dL (Normal) Other Laboratory Tests 01/09/24 05:12 Brief Hx & Hospital Course: came with some chest pain troponins negative pain resolved Condition at Discharge: Good Final Diagnosis/Problems List musculoskeletal chest pain hypokalemia urinary tract infection ruled out Discharge Disposition: Home Discharge Instruct/Medications Diet: Regular Activity: No Restrictions, As Tolerated Discharge Statement: "Patient was advised to return to the ER or call 911 if any headaches, dizziness, shortness of breath, chest pain, abdominal pain, bleeding, fevers, or worsening of medical condition. Patient was counseled about treatment plan, medications, possible side effects, patientverbalized understanding. All questions were answered to the best of my ability. This discharge took greater then 30 minutes in planning, reviewing documentation, counseling the patient, and discussing with other team members." ASSESSMENT ASSESSMENT Assessment Date of Service: Jan 09, 2024 Billing Provider: MARION WALL MD Common Visit Codes: 65107-AEX/OBS DISCH DAY >30min MARION WALL MD Jan 09, 2024 11:06
[2024-01-09] MEDS: POTASSIUM CHL 20 Meq TABLET PO ONE (11:40)
[2024-01-09 12:36] VITALS: BP 120/61; PULSE 84; RESP 18; TEMP 97.7; O2SAT 93
[2024-01-09 12:40] VITALS: BP 132/73; PULSE 85; RESP 19; TEMP 98; O2SAT 91
--- NOTE | 2024-01-10 13:39 | ECG ---
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
--- NOTE | 2024-01-10 13:39 | ECG ---
[facility] Test Date: 2024-01-08 Test Time: 11:27:30 Pat Name: THERESA ALFARO Department: er Room: [facility]3T B Gender: F Volumetric Weigher: leobardo : 1950 Requested By: ROMY STEPHENS Order Number: [id number] Reading MD: Peter Weldon Measurements Intervals [place] Rate: 86 P: 45 NH: 150 QRS: 26 QRSD: 100 T: -17 QT: 375 QTc: 449 Interpretive Statements Sinus rhythm Inferior infarct, age indeterminate Electronically Signed On 01-20-2024 12:21:35 PST by Peter Weldon Please click the below link to view image of tracing.
== END 2024-01-09 14:20 | disposition home or self-care (01) | DRG 313 ==
LOC: EDBD 11:25 → ER 11:25 → TELE 18:17 → TELE-WESTW 22:33
PROVIDERS: ADMIT Hospitalist; ATTEND Hospitalist
DX: R07.89 Other chest pain (principal); R42 Dizziness and giddiness; R00.2 Palpitations; E87.6 Hypokalemia; J44.89 Other specified chronic obstructive pulmonary disease; F17.210 Nicotine dependence, cigarettes, uncomplicated; I10 Essential (primary) hypertension; E78.5 Hyperlipidemia, unspecified; F41.9 Anxiety disorder, unspecified; Z79.899 Other long term (current) drug therapy
CPT/HCPCS: 36415; 71046; 80048; 80053; 81001; 83735; 83880; 84443; 84484; 85025; 93005; 96374; G0378

== ENCOUNTER 2024-01-17 10:21 | Emergency (ER) | payer OTHER, MEDICAID ==
[~2024-01-17] VITALS: Ht 149.9 cm; Wt 95.4 kg
[~2024-01-17 10:21] MED LIST changes: +AMLO1TAB22 PO; +ATOR40TA52 PO; +FURO1TAB33 PO; +POTA-36 PO
--- NOTE | 2024-01-17 10:36 | ED.PDOC ---
History of Present Illness HPI Comments 73-year-old female brought in by EMS presents with a chief complaint of SOB at rest and with exertion and palpitations. Patient reports that she feels SOB with exertion and gets palpitations, but that it typically self resolves without interference if she sits down and rests. Patient mentions that she may have pneumonia, but is unsure. Patient endorses smoking cigarettes and alcohol use. Vital signs all within normal limits. No other symptoms or modifying factors present at this time. Time Seen by MD: 10:28 Primary Care Provider: CHANG Navarrete Notes: Nurses Notes, Medications, Allergies Allergies: Coded Allergies: NO KNOWN ALLERGIES (Unverified , 12/15/11) Home Meds Active Scripts Potassium Chloride (POTASSIUM CHLORIDE CR) 10 Meq Tb, 1 TAB PO DAILY for 4 Days, #4 TAB 5 Refills Prov:MARION WALL MD 01/09/24 Sulfamethoxazole W/Trimethopri (Bactrim Ds Tablet) 1 Tab Tb, 1 TAB PO BID for 5 Days, #10 TAB Prov:YULISSA KOO MD 08/13/22 Reported Medications Furosemide (Lasix) 20 Mg Tb, 1 TAB PO DAILY, #90 TAB 1 Refill 01/09/24 Amlodipine Besylate (Amlodipine Besylate) 5 Mg Tab, 10 MG PO DAILY for 30 Days, MG 01/09/24 Atorvastatin Calcium (ATORVASTATIN CALCIUM) 40 Mg Tab, 40 MG PO DAILY, TAB 01/08/24 Lorazepam (Ativan) 1 Mg Tab, 1 MG PO PRN 12/15/11 Tramadol Hcl (Tramadol Hcl) 50 Mg Tab, 50 MG PO HS 12/15/11 Valsartan (Diovan) 160 Mg Tab, 160 MG PO DAILY 12/15/11 Information Source: Patient Mode of Arrival: Ambulatory Severity: Moderate Timing: Hours Duration: Since onset Prehospital treatment: None Past Medical History PAST MEDICAL HISTORY: CHF, COPD, High Lipids, HTN Surgical History: Denies all surgeries 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 Family History Family History: Unobtainable Social History Smoker: Cigarettes, Less Than 1 Pack/Day Alcohol: Occasionally Drugs: Denies Drug Use Lives In: Home Constitutional: denies: chills, diaphoresis, fatigue, fever, malaise, sweats, weakness, others EENTM: denies: blurred vision, double vision, ear bleeding, ear discharge, ear drainage, ear pain, ear ringing, eye pain, eye redness, hearing loss, mouth pain, mouth swelling, nasal discharge, nose bleeding, nose congestion, nose pain, photophobia, tearing, throat pain, throat swelling, voice changes, others Respiratory: reports: shortness of breath, SOB with excertion; denies: cough, hemoptysis, orthopnea, SOB at rest, stridor, wheezing, others Cardiovascular: reports: palpitations; denies: chest pain, dizzy spells, diaphoresis, Dyspnea on exertion, edema, irregular heart beat, left arm pain, lightheadedness, PND, syncope, others Gastrointestinal: denies: abdomen distended, abdominal pain, blood streaked bowels, constipated, diarrhea, dysphagia, difficulty swallowing, hematemesis, melena, nausea, poor appetite, poor fluid intake, rectal bleeding, rectal pain, vomiting, others Genitourinary: denies: abnormal vagina bleeding, burning, dyspareunia, dysuria, flank pain, frequency, hematuria, incontinence, pain, , vagina discharge, urgency, others Neurological: denies: dizziness, fainting, headache, left sided numbness, left sided weakness, numbness, paresthesia, pre-existing deficit, right sided numbness, right sided weakness, seizure, speech problems, tingling, tremors, weakness, others Musculoskeletal: denies: back pain, gout, joint pain, joint swelling, muscle pain, muscle stiffness, neck pain, others Integumetry: denies: bruises, change in color, change in hair/nails, dryness, laceration, lesions, lumps, rash, wounds, others Allergic/Immunocompromised: denies: Difficulty Healing, Frequent Infections, Hives, Itching, others Hematologic/Lymphatic: denies: anemia, blood clots, easy bleeding, easy bruising, swollen glands, others Endocrine: denies: excessive hunger, excessive sweating, excessive thirst, excessive urination, flushing, intolerance to cold, intolerance to heat, unexplained weight gain, unexplained weight loss, others Psychiatric: denies: anxiety, bipolar disorder, depression, hopeless, panic disorder, schizophrenia, sleepless, suicidal, others All Other Systems: Reviewed and Negative Physical Exam General Appearance: No Apparent Distress HEENT: Normal ENT Inspection, Pharynx Normal, TMs Normal Neck: Full Range of Motion, Non-Tender, Normal, Normal Inspection Respiratory: Chest Non-Tender, Lungs Clear, No Accessory Muscle Use, No Respiratory Distress, Normal Breath Sounds Cardiovascular: No Edema, No JVD, No Murmur, No Gallop, Normal Peripheral Pulses, Regular Rate/Rhythm Breast Exam: Deferred Gastrointestinal: No Organomegaly, Non Tender, No Pulsatile Mass, Normal Bowel Sounds, Soft Genitalia: Deferred Pelvic: Deferred Rectal: Deferred Extremities: No calf tenderness, Normal capillary refill, No pedal edema Musculoskeletal : Apperance: Normal Neurologic: Alert, rn midwife II-XII nml as Tested, Motor Weakness, Normal Affect, Normal Mood, No Sensory Deficits Cerebellar Function: Normal Reflexes: Normal Skin: Dry, Normal Color, Warm Lymphatic: No Adenopathy Was a procedure done? Was a procedure done?: No Differential Dx Considerations may include: Generalized weakness, constipation, abdominal pain, vomiting X-Ray, Labs, Meds, VS Vital Signs Date Time Temp Pulse Resp B/P (MAP) Pulse Ox O2 Delivery O2 Flow Rate FiO2 01/17/24 11:30 98.2 83 17 118/74 (89) 98 98.2 01/17/24 11:30 83 17 98 Room Air* 0 21 01/17/24 10:45 127/67 01/17/24 10:42 98.6 85 16 127/76 (93) 94 Lab Test 01/17/24 11:09 01/17/24 10:58 Range/Units White Blood Count 8.7 4.4-10.8 10^3/uL Red Blood Count 5.03 4.0-5.20 10^6/uL Hemoglobin 16.7 H 12.2-16.2 g/dL Hematocrit 48.1 H 36.0-46.0 % Mean Corpuscular Volume 95.7 80.0-100.0 fL Mean Corpuscular Hemoglobin 33.3 H 28.0-32.0 pg Mean Corpuscular Hemoglobin Concent 34.8 32.0-36.0 g/dL Red Cell Distribution Width 13.5 11.8-14.3 % Platelet Count 224 140-450 10^3/uL Mean Platelet Volume 8.3 6.9-10.8 fL Neutrophils (%) (Auto) 60.4 37.0-80.0 % Lymphocytes (%) (Auto) 28.0 10.0-50.0 % Monocytes (%) (Auto) 9.4 0.0-12.0 % Eosinophils (%) (Auto) 1.4 0.0-7.0 % Basophils (%) (Auto) 0.8 0.0-2.0 % Neutrophils # (Auto) 5.2 1.6-8.6 10 ^3/uL Lymphocytes # (Auto) 2.4 0.4-5.4 10 ^3/uL Monocytes # (Auto) 0.8 0-1.3 10 ^3/uL Eosinophils # (Auto) 0.1 0-0.8 10 ^3/uL Basophils # (Auto) 0.1 0-0.2 10 ^3/uL Nucleated Red Blood Cells 0.1 % Sodium Level 139 136-145 mmol/L Potassium Level 3.7 3.5-5.1 mmol/L Chloride Level 106 98-107 mmol/L Carbon Dioxide Level 28 20-31 mmol/L Anion Gap 5 5-15 Blood Urea Nitrogen < 5 L 9-23 mg/dL Creatinine 0.55 0.550-1.02 mg/dL Glomerular Filtration Rate Calc 97 >90 mL/min BUN/Creatinine Ratio 9.1 L 10.0-20.0 Serum Glucose 97 74-106 mg/dL Calcium Level 10.8 H 8.7-10.4 mg/dL B-Type Natriuretic Peptide 15.73 0-100 pg/mL Urine Color Straw Yellow Urine Clarity Turbid H Clear Urine pH 6.5 5.0-9.0 Urine Specific [place] 1.002 1.001-1.035 Urine Protein Negative Negative Urine Ketones Negative Negative Urine Blood Negative Negative /uL Urine Nitrite Negative Negative Urine Bilirubin Negative Negative Urine Urobilinogen Normal Negative mg/dL Urine Leukocyte Esterase Trace Negative /uL Urine RBC None seen 0 - 4 /hpf Urine WBC 2 0 - 5 /hpf Urine Squamous Epithelial Cells Few <5 /hpf Urine Bacteria Few H None Seen /hpf Urine Glucose Normal Normal mg/dL Chest X-Ray Impression: No acute intrathoracic abnormality The patient's urine test is negative The CBC and chemistry panel are within normal limits The BNP is within normal limits The patient continues to complain of some shortness of breath. The patient was saturating at 98% room air Images Reviewed?: Images reviewed and evaluated by me Time of 1ST Reevaluation: 10:58 Reevaluation 1ST: Unchanged Time of 2ND Reevaluation: 13:47 Reevaluation 2ND: Improved Patient Education/Counseling: Diagnosis, Treatment, Prognosis, Need For Follow Up Family Education/Counseling: No Family Present Departure 1 Departure Time of Disposition: 13:45 Impression: Primary Impression: Palpitations Disposition: 01 HOME / SELF CARE / HOMELESS Condition: Fair Discharged With: Self Critical Care Note Critical Care Time?: No Stability Stability form required: No Heart Score Heart Score: Heart Score Response (Comments) Value History Slightly Suspicious 0 EKG Normal 0 Age >65 2 Risk Factors 1 or 2 risk factors 1 Troponin Normal limit 0 Total 3 I personally scribed for JENNIFER BRAGA MD ([email or web address]) on 01/17/24 at 10:36. Electronically submitted by Antelmo Contreras ([email or web address]). I personally scribed for JENNIFER BRAGA MD ([email or web address]) on 01/17/24 at 12:09. Electronically submitted by Antelmo Contreras ([email or web address]). JENNIFER BRAGA MD Jan 17, 2024 10:36
[2024-01-17] MEDS: FUROSEMIDE 40 MG/4 ML VIAL IV ONE (10:45)
--- NOTE | 2024-01-17 11:02 | DVH ---
XY CHEST TWO VIEWS ROUTINE, HISTORY: cp COMPARISON: XY CHEST TWO VIEWS ROUTINE on DOS: 01/08/24, XY CHEST TWO VIEWS ROUTINE on DOS: 08/13/22 XY CHEST TWO VIEWS ROUTINE on DOS: 01/08/24, XY CHEST TWO VIEWS ROUTINE on DOS: 08/13/22 TECHNICAL DATA: 2 view of the chest was obtained. FINDINGS: Lines and tubes: None Cardiomediastinal silhouette: normal Pulmonary vasculature: normal Lung expansion: normal Lung airspace: normal Lung interstitium: normal Pleura: normal Pneumothorax: no Bones: Unremarkable Other: no IMPRESSION: No acute intrathoracic abnormality.
[2024-01-17 11:29] LABS: Basophils # (auto) 0.1 10 ^3/uL (0-0.2); Basophils % (auto) 0.8 % (0.0-2.0); Eosinophils # (auto) 0.1 10 ^3/uL (0-0.8); Eosinophils % (auto) 1.4 % (0.0-7.0); Hematocrit 48.1 % (36.0-46.0); Hemoglobin 16.7 g/dL (12.2-16.2); Lymphocytes # (auto) 2.4 10 ^3/uL (0.4-5.4); Mean Corpuscular Hemoglobin 33.3 pg (28.0-32.0); Mean Corpuscular Hgb Conc. 34.8 g/dL (32.0-36.0); Mean Corpuscular Volume 95.7 fL (80.0-100.0); Monocytes # (auto) 0.8 10 ^3/uL (0-1.3); Monocytes % (auto) 9.4 % (0.0-12.0); Neutrophils # (auto) 5.2 10 ^3/uL (1.6-8.6); Neutrophils % (auto) 60.4 % (37.0-80.0); Nucleated Red Blood Cells % 0.1 %; Platelet Count (auto) 224 10^3/uL (140-450); Red Blood Cells 5.03 10^6/uL (4.0-5.20); Red Cell Distribution Width 13.5 % (11.8-14.3); White Blood Cell 8.7 10^3/uL (4.4-10.8)
[2024-01-17 11:30] VITALS: PULSE 83; RESP 17; TEMP 98.2; O2SAT 98
[2024-01-17 11:40] LABS: Chloride 106 mmol/L (98-107); Potassium 3.7 mmol/L (3.5-5.1); Sodium 139 mmol/L (136-145)
[2024-01-17 11:41] LABS: Anion Gap 5 (5-15); Carbon Dioxide 28 mmol/L (20-31)
[2024-01-17 11:42] LABS: Calcium 10.8 mg/dL (8.7-10.4)
[2024-01-17 11:46] LABS: Glucose 97 mg/dL (74-106)
[2024-01-17 11:49] LABS: BUN/Creatinine Ratio 9.1 (10.0-20.0); Blood Urea Nitrogen < 5 mg/dL (9-23)
[2024-01-17 12:29] LABS: Urine Bacteria FEW /hpf (None Seen); Urine Blood Negative /uL (Negative); Urine Clarity Turbid (Clear); Urine Protein, UAD Negative (Negative); Urine Specific Gravity 1.002 (1.001-1.035); Urine Urobilinogen Normal (Negative); Urine WBC 2 /hpf (0 - 5); Urine pH 6.5 (5.0-9.0)
[2024-01-17 12:38] LABS: Urine Color STRAW (Yellow)
[2024-01-17 14:00] VITALS: BP 135/71; PULSE 80; RESP 17; O2SAT 98
== END 2024-01-17 14:01 | disposition home or self-care (01) ==
LOC: ER 10:21 → EDBD 10:21 → ER 14:01
DX: R00.2 Palpitations (principal); I11.0 Hypertensive heart disease with heart failure; I50.9 Heart failure, unspecified; J44.9 Chronic obstructive pulmonary disease, unspecified; F17.210 Nicotine dependence, cigarettes, uncomplicated; Z79.899 Other long term (current) drug therapy
CPT/HCPCS: 36415; 71046; 80048; 81001; 83880; 85025

== ENCOUNTER → 2024-01-26 | Outpatient (CLI) | payer OTHER, MEDICAID ==
--- NOTE | 2024-01-31 13:40 | DVHSR ---
APPROVED REPORT EXAM: Two-dimensional and M-mode echocardiogram with Doppler and color Doppler. DIMENSIONS LVDd4.3 (3.8-5.7cm)LA (2D)3.5 (1.9-4.0cm)Aortic Root3.1 (2.0-3.7cm) LVDs2.5 (2.5-4.0cm)LA (MM) (1.9-4.0cm)Aortic Cusp Exc1.6 (1.5-2.0cm) EF (%) 60.0 (55-70%)Rt. Atrium3.4 (1.9-4.0cm)Asc. Aorta cm IVSd0.7 (0.7-1.1cm)RV (D) (1.8-2.4cm) PWd1.1 (0.7-1.1cm) Mitral Valve MitralMitral Stenosis E wave0.73m/sMV Mean GR.mmHg A wave0.76m/sMV Peak GR.mmHg E/A ratio1.02D MVAcm2 DECEL [id number] 1/2 Timems Aortic Valve Aortic ValveAortic Stenosis V11.11m/Crista Mean GR.4mmHg V21.42m/Crista Peak GR.8mmHg LVOT Diameter1.8 (1.8-2.4cm)Doppler AVA1.99cm2 LEFT VENTRICLE The left ventricle is normal size. The left ventricle is normal in structure and function. The Ejection Fraction is within normal limits. RIGHT VENTRICLE The right ventricle is normal size. ATRIA The left atrial size is normal. The right atrium size is normal. The interatrial septum is intact with no evidence for an atrial septal defect. MITRAL VALVE The mitral valve is normal in structure. There is no mitral valve regurgitation noted. PULMONIC VALVE The pulmonic valve is not well visualized. TRICUSPID VALVE The tricuspid valve is grossly normal. AORTIC VALVE The aortic valve opens well. No aortic regurgitation is present. GREAT VESSELS The aortic root is normal size. PERICARDIAL EFFUSION There is no pericardial effusion. Other Information Quality : LimitedRhythm : Technically limited study due to body habitus. Conclusion EF >60%
== END | disposition home or self-care (01) ==
LOC: Rad HDHVI 10:48
PROVIDERS: ATTEND Internal Medicine Cardiovascular Disease
DX: R55 Syncope and collapse (principal)
CPT/HCPCS: 93306

== ENCOUNTER → 2024-02-28 | Outpatient (CLI) | payer OTHER, MEDICAID ==
[~2024-02-28] VITALS: Ht 149.9 cm; Wt 81.6 kg
[~2024-02-28] MED LIST changes: +ADENOSINE 69 MG in GIVE UN-DILUTED 0 ML IV ONE; +ADENOSINE 90 MG/30 ML INJ IV ONE
== END | disposition home or self-care (01) ==
LOC: Rad HDHVI 08:04
PROVIDERS: ATTEND Internal Medicine Cardiovascular Disease
DX: R55 Syncope and collapse (principal); R42 Dizziness and giddiness; I10 Essential (primary) hypertension; E78.00 Pure hypercholesterolemia, unspecified; F17.210 Nicotine dependence, cigarettes, uncomplicated
CPT/HCPCS: 78452; 93005; 96374; 96375; A9500; J0153

== ENCOUNTER 2024-03-05 06:06 | Inpatient (IN) | payer OTHER, MEDICAID ==
[~2024-03-05] VITALS: Ht 149.9 cm; Wt 81.8 kg
[~2024-03-05 06:06] MED LIST changes: -ADENOSINE 69 MG in GIVE UN-DILUTED 0 ML IV ONE; -ADENOSINE 90 MG/30 ML INJ IV ONE
--- NOTE | 2024-03-05 06:55 | ED.PDOC ---
SOB-HPI HPI Comments 73 year old female brought in by EMS presents to the ED with a chief complaint of shortness of breath onset today around 02:00. Per EMS, patient is not on oxygen at home, O2 sat was 95% on RA and was placed on 2L with 97% O2 sat. Patient states she woke up experiencing shortness of breath and began experiencing a productive cough yesterday. She is currently taking Lasix. PMHx CHF, COPD, HTN, HLD. Denies chest pain, fever, nausea, vomiting, diarrhea, di zziness. No other symptoms or modifying factors present at this time. Chief Complaint: Shortness of Breath Time Seen by MD: 06:26 Primary Care Provider: CHANG Navarrete notes: Medications, Allergies Information Source: Patient, Emergency Med Personnel Mode of Arrival: EMS Severity: Moderate Timing: Hours Duration: Since onset Context: At Rest PE Risk Factors: None History of: COPD, CHF Prehospital treatment: Oxygen, Treatment (Med Neb ) Modifying Factors: Nothing Associated Signs and Symptoms: Cough Radiation: No Radiation If cough with SOB: Productive, Clear Past Medical History PAST MEDICAL HISTORY: CHF, COPD, High Lipids, HTN Surgical History: Denies all surgeries 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 Family History Family History: Unobtainable Social History Smoker: Cigarettes, Less Than 1 Pack/Day Alcohol: Occasionally Drugs: Denies Drug Use Lives In: Home Constitutional: denies: chills, diaphoresis, fatigue, fever, malaise, sweats, weakness, others EENTM: denies: blurred vision, double vision, ear bleeding, ear discharge, ear drainage, ear pain, ear ringing, eye pain, eye redness, hearing loss, mouth pain, mouth swelling, nasal discharge, nose bleeding, nose congestion, nose pain, photophobia, tearing, throat pain, throat swelling, voice changes, others Respiratory: reports: cough, shortness of breath; denies: hemoptysis, orthopnea, SOB at rest, SOB with excertion, stridor, wheezing, others Cardiovascular: denies: chest pain, dizzy spells, diaphoresis, Dyspnea on exertion, edema, irregular heart beat, left arm pain, lightheadedness, palpitations, PND, syncope, others Gastrointestinal: denies: abdomen distended, abdominal pain, blood streaked bowels, constipated, diarrhea, dysphagia, difficulty swallowing, hematemesis, melena, nausea, poor appetite, poor fluid intake, rectal bleeding, rectal pain, vomiting, others Genitourinary: denies: abnormal vagina bleeding, burning, dyspareunia, dysuria, flank pain, frequency, hematuria, incontinence, pain, , vagina discharge, urgency, others Neurological: denies: dizziness, fainting, headache, left sided numbness, left sided weakness, numbness, paresthesia, pre-existing deficit, right sided numbness, right sided weakness, seizure, speech problems, tingling, tremors, weakness, others Musculoskeletal: denies: back pain, gout, joint pain, joint swelling, muscle pain, muscle stiffness, neck pain, others Integumetry: denies: bruises, change in color, change in hair/nails, dryness, laceration, lesions, lumps, rash, wounds, others Allergic/Immunocompromised: denies: Difficulty Healing, Frequent Infections, Hives, Itching, others Hematologic/Lymphatic: denies: anemia, blood clots, easy bleeding, easy bruising, swollen glands, others Endocrine: denies: excessive hunger, excessive sweating, excessive thirst, excessive urination, flushing, intolerance to cold, intolerance to heat, unexplained weight gain, unexplained weight loss, others Psychiatric: denies: anxiety, bipolar disorder, depression, hopeless, panic disorder, schizophrenia, sleepless, suicidal, others All Other Systems: Reviewed and Negative Physical Exam General Appearance: Moderate Distress HEENT: Normal ENT Inspection, Pharynx Normal, TMs Normal Neck: Full Range of Motion, Non-Tender, Normal, Normal Inspection Respiratory: Accessory Muscle Use, Respiratory Distress, Other (Coarse breath sounds) Cardiovascular: Tachycardia Breast Exam: Deferred Gastrointestinal: No Organomegaly, Non Tender, No Pulsatile Mass, Normal Bowel Sounds, Soft Genitalia: Deferred Pelvic: Deferred Rectal: Deferred Extremities: No calf tenderness, Pedal edema Musculoskeletal : Apperance: Normal Neurologic: Alert Cerebellar Function: NOT DONE Reflexes: NOT DONE Skin: Normal Color Peripheral Pulses: 3+ Radial (R), 3+ Radial (L) Lymphatic: No Adenopathy Was a procedure done? Was a procedure done?: No Differential Dx Differential Diagnosis: Anxiety, Asthma, Bronchitis, CHF, COPD X-Ray, Labs, Meds, VS Vital Signs Date Time Temp Pulse Resp B/P (MAP) Pulse Ox O2 Delivery O2 Flow Rate FiO2 1/5/25 06:10 99 Nasal Cannula* 2 28 03/05/24 06:10 98.6 121 18 120/74 (89) 99 03/05/24 06:06 118 Lab Test 03/05/24 07:08 Range/Units White Blood Count Pending Red Blood Count Pending Hemoglobin Pending Hematocrit Pending Mean Corpuscular Volume Pending Mean Corpuscular Hemoglobin Pending Mean Corpuscular Hemoglobin Concent Pending Red Cell Distribution Width Pending Platelet Count Pending Mean Platelet Volume Pending Neutrophils (%) (Auto) Pending Lymphocytes (%) (Auto) Pending Monocytes (%) (Auto) Pending Basophils (%) (Auto) Pending Neutrophils # (Auto) Pending Lymphocytes # (Auto) Pending Monocytes # (Auto) Pending Sodium Level Pending Potassium Level Pending Chloride Level Pending Carbon Dioxide Level Pending Anion Gap Pending Blood Urea Nitrogen Pending Creatinine Pending Glomerular Filtration Rate Calc Pending BUN/Creatinine Ratio Pending Serum Glucose Pending Calcium Level Pending Troponin I High Sensitivity Pending B-Type Natriuretic Peptide Pending Patient alert. Tachycardic. Shortness a breath. Placed on oxygen. Using accessory muscles. Was given steroid. Has mild edema of bilateral lower extremity. CHF. Was given Lasix. EKG reviewed does not show any acute changes. Reviewed her previous visit. Explained to the patient. Continue cardiac monitoring. Time of 1ST Reevaluation: 06:56 Reevaluation 1ST: Unchanged Patient Education/Counseling: Diagnosis, Treatment, Prognosis Family Education/Counseling: No Family Present Additional Information I reviewed the following notes from patient's past medical encounters: none The following tests were ordered, and results were reviewed by me: EKG, TROP, CBC, BMP, XY CHEST, UA, BMP, ABG W/ CO-OX Additional Information was gathered from interviewing the following independent historians: EMS I reviewed and agreed with the following test results read by other providers: LUIS CHEST, I discussed treatment and results with medical personnel and patient Departure 1 Departure Time of Disposition: 07:11 Impression: Primary Impression: Acute respiratory failure Qualified Codes: J96.01 - Acute respiratory failure with hypoxia Additional Impressions: COPD (chronic obstructive pulmonary disease) Qualified Codes: J44.9 - Chronic obstructive pulmonary disease, unspecified CHF (congestive heart failure) Qualified Codes: I50.43 - Acute on chronic combined systolic (congestive) and diastolic (congestive) heart failure Disposition: ADMITTED INPATIENT Admit to: Med Surg Condition: Guarded Critical Care Note Critical Care Time?: Yes (90 min-critical care time only) Stability Stability form required: No Heart Score Heart Score: Heart Score Response (Comments) Value History Slightly Suspicious 0 EKG Normal 0 Age >65 2 Risk Factors >3 or Hx ASHD 2 Troponin Normal limit 0 Total 4 I personally scribed for YULISSA KOO MD ([email or web address]) on 03/05/24 at 06:55. Electronically submitted by Leda Perez ([email or web address]). I personally scribed for YULISSA KOO MD ([email or web address]) on 03/05/24 at 07:30. Electronically submitted by Leda Perez ([email or web address]). YULISSA KOO MD Mar 05, 2024 06:55
--- NOTE | 2024-03-05 07:27 | ECG ---
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
[2024-03-05 07:32] LABS: Chloride 104 mmol/L (98-107); Sodium 137 mmol/L (136-145)
[2024-03-05 07:33] LABS: Anion Gap 4 (5-15); Carbon Dioxide 29 mmol/L (20-31)
[2024-03-05 07:34] LABS: Calcium 10.8 mg/dL (8.7-10.4)
[2024-03-05 07:36] LABS: Base Excess -3.1 mmol/L (-2.0-3.0)
[2024-03-05 07:38] LABS: BUN/Creatinine Ratio 10.3 (10.0-20.0)
[2024-03-05 07:41] LABS: Basophils # (auto) 0 10 ^3/uL (0-0.2); Basophils % (auto) 0.4 % (0.0-2.0); Eosinophils # (auto) 0 10 ^3/uL (0-0.8); Eosinophils % (auto) 0.3 % (0.0-7.0); Hematocrit 49.4 % (36.0-46.0); Hemoglobin 16.6 g/dL (12.2-16.2); Lymphocytes # (auto) 0.5 10 ^3/uL (0.4-5.4); Lymphocytes % (auto) 4.2 % (10.0-50.0); Mean Corpuscular Hemoglobin 32.4 pg (28.0-32.0); Mean Corpuscular Hgb Conc. 33.7 g/dL (32.0-36.0); Mean Corpuscular Volume 96.2 fL (80.0-100.0); Monocytes # (auto) 0.6 10 ^3/uL (0-1.3); Monocytes % (auto) 5.3 % (0.0-12.0); Neutrophils # (auto) 10.8 10 ^3/uL (1.6-8.6); Neutrophils % (auto) 89.8 % (37.0-80.0); Nucleated Red Blood Cells % 0.1 %; Platelet Count (auto) 213 10^3/uL (140-450); Red Blood Cells 5.13 10^6/uL (4.0-5.20); Red Cell Distribution Width 13.6 % (11.8-14.3)
[2024-03-05 07:43] LABS: Blood Urea Nitrogen 6 mg/dL (9-23); Glucose 109 mg/dL (74-106)
--- NOTE | 2024-03-05 07:50 | DVH ---
CHEST RADIOGRAPH Indication: sob Technique: Single frontal view of the chest was obtained Comparison: XY CHEST PORTABLE on DOS: 01/04/24 FINDINGS: Lines and Tubes: None Lungs: No focal consolidation. Pleura: No effusion. No pneumothorax. Cardiomediastinal contours: Unremarkable Bones: No acute osseous abnormality. IMPRESSION: No acute cardiopulmonary disease.
[2024-03-05 08:12] VITALS: PULSE 126; RESP 18; O2SAT 95
[2024-03-05] MEDS: methylPREDNISolone SOD SUCC 125 MG/2 ML VL IV ONE (08:17)
[2024-03-05] MEDS: FUROSEMIDE 40 MG/4 ML VIAL IV ONE (08:17)
[2024-03-05] MEDS ORDERED: BUSP30TA PO (15:25)
[2024-03-05] MEDS ORDERED: ATOR20TA50 PO (15:25)
[2024-03-05] MEDS ORDERED: CITA-73 PO (15:25)
[2024-03-05] MEDS ORDERED: ALBUTEROL SULF 2.5 MG/0.5ML(0.5%) NEB SOLN NEB PRN (16:00)
[2024-03-05] MEDS ORDERED: IPRATROPIUM BROM 0.5 MG/2.5ML INH SOL NEB PRN (16:00)
--- NOTE | 2024-03-05 16:09 | DVHHP2 ---
History of Present Illness Reason for Visit: Shortness of breath History of Present Illness This 73-year-old female with past medical history of COPD, hypertension, hyperlipidemia, anxiety, depression, and cigarette smoker, presents in the ED with a chief complaint of shortness of breath. The patient reports shortness of breath associated with productive cough started yesterday. The patient reports that she was recently exposed with sick person with influenza. The patient states that she uses CPAP machine at night for ADELINE. She denies dizziness, chest pain, palpitations, shortness of breath, or wheezing. Past Medical History As stated in HPI Past Surgical History Denies Family History Reviewed, non-contributory to the management of this case. Past Social History Cigarette smoking Denies illicit drug or ETOH use Review of Systems Constitutional: Yes: Malaise; No: Fever, Chills, Sweats, Weakness, Other Eyes: No: Pain, Vision change, Conjunctivae inflammation, Eyelid inflammation, Other, Redness ENT: No: Ear pain, Ear discharge, Nose pain, Nose discharge, Nose congestion, Mouth pain, Mouth swelling, Throat pain, Throat swelling, Other Respiratory: Cough, Shortness of breath; No: Dry, SOB with excertion, Wheezing, Hemoptysis, Pleuritic Pain, Sputum, Wheezing, Other Cardiovascular: No: Chest Pain, Palpitations, Orthopnea, Paroxysmal Noc. Dyspnea, Edema, Lt Headedness, Other Gastrointestinal: No: Nausea, Vomiting, Abdominal Pain, Diarrhea, Constipation, Melena, Hematochezia, Other Genitourinary: No Dysuria, No Frequency, No Incontinence, No Hematuria, No Retention, No Other Musculoskeletal: No: other, neck pain, shoulder pain, arm pain, back pain, hand pain, leg pain, foot pain Skin: No: Rash, Lesions, Jaundice, Bruising, Other Neurological: No: Weakness, Numbness, Incoordination, Change in speech, Confusion, Seizures, Other Allergies: Coded Allergies: NO KNOWN ALLERGIES (Unverified , 12/15/11) Exam Vital Signs Vital Signs Date Time Temp Pulse Resp B/P (MAP) Pulse Ox O2 Delivery O2 Flow Rate FiO2 03/05/24 08:17 110/59 03/05/24 08:12 126 18 95 Nasal Cannula* 2 28 03/05/24 08:11 100.4 100.4 General Appearance: Alert, Oriented X3, Cooperative, mild distress HEENT: Atraumatic, PERRLA, Mucous membr. moist/pink Respiratory: Clear to auscultation, Normal air movement Cardiovascular: Regular rate, Normal S1, Normal S2 Abdominal: Normal bowel sounds, Soft, No tenderness Extremities: No clubbing, No cyanosis, No edema, Normal pulses Skin: No rashes, No breakdown, No significant lesion Neuro: Normal gait, Normal speech, Strength at 5/5 X4 ext, Normal tone Psych/Mental Status: Mental status NL Labs/Xrays Labs Test 03/05/24 07:30 03/05/24 07:08 Range/Units Blood Gas Specimen Type Arterial Blood Gas Sample Site Left radial Blood Gas Patient Temperature 37.0 Arterial Blood Date Drawn [id number] Arterial Blood pH 7.398 7.350-7.450 Arterial Blood Partial Pressure CO2 34.4 32.0-45.0 mmHg Arterial Blood Partial Pressure O2 102.5 83.0-108.0 mmHg Arterial Blood HCO3 20.7 L 21.0-28.0 mmol/L Arterial Blood Oxygen Saturation 97.9 94.0-98.0 % Arterial Blood Base Excess -3.1 L -2.0-3.0 mmol/L Arterial Blood Oxyhemoglobin 95.0 94.0-98.0 % Arterial Blood Carboxyhemoglobin 2.2 H 0.5-1.5 % Arterial Blood Methemoglobin 0.8 0.0-1.5 % Carloz Test Yes Blood Gas Total Hemoglobin 17.00 H 12.0-16.0 g/dL Blood Gas Liter Flow 2.00 Blood Gas Modality Nasal cannula FiO2 % 28.0 White Blood Count 12.0 H 4.4-10.8 10^3/uL Red Blood Count 5.13 4.0-5.20 10^6/uL Hemoglobin 16.6 H 12.2-16.2 g/dL Hematocrit 49.4 H 36.0-46.0 % Mean Corpuscular Volume 96.2 80.0-100.0 fL Mean Corpuscular Hemoglobin 32.4 H 28.0-32.0 pg Mean Corpuscular Hemoglobin Concent 33.7 32.0-36.0 g/dL Red Cell Distribution Width 13.6 11.8-14.3 % Platelet Count 213 140-450 10^3/uL Mean Platelet Volume 8.5 6.9-10.8 fL Neutrophils (%) (Auto) 89.8 H 37.0-80.0 % Lymphocytes (%) (Auto) 4.2 L 10.0-50.0 % Monocytes (%) (Auto) 5.3 0.0-12.0 % Eosinophils (%) (Auto) 0.3 0.0-7.0 % Basophils (%) (Auto) 0.4 0.0-2.0 % Neutrophils # (Auto) 10.8 H 1.6-8.6 10 ^3/uL Lymphocytes # (Auto) 0.5 0.4-5.4 10 ^3/uL Monocytes # (Auto) 0.6 0-1.3 10 ^3/uL Eosinophils # (Auto) 0 0-0.8 10 ^3/uL Basophils # (Auto) 0 0-0.2 10 ^3/uL Nucleated Red Blood Cells 0.1 % Sodium Level 137 136-145 mmol/L Potassium Level 4.0 3.5-5.1 mmol/L Chloride Level 104 98-107 mmol/L Carbon Dioxide Level 29 20-31 mmol/L Anion Gap 4 L 5-15 Blood Urea Nitrogen 6 L 9-23 mg/dL Creatinine 0.58 0.550-1.02 mg/dL Glomerular Filtration Rate Calc 95 >90 mL/min BUN/Creatinine Ratio 10.3 10.0-20.0 Serum Glucose 109 H 74-106 mg/dL Calcium Level 10.8 H 8.7-10.4 mg/dL Troponin I High Sensitivity < 3 L </=34 ng/L B-Type Natriuretic Peptide 11.42 0-100 pg/mL PROCEDURE(s): CXRP - CHEST PORTABLE REASON: sob ORDER NUMBER(s): [id number], ACCESSION NUMBER(s): [id number] CHEST RADIOGRAPH Indication: sob Technique: Single frontal view of the chest was obtained Comparison: XY CHEST PORTABLE on DOS: 01/04/24 FINDINGS: Lines and Tubes: None Lungs: No focal consolidation. Pleura: No effusion. No pneumothorax. Cardiomediastinal contours: Unremarkable Bones: No acute osseous abnormality. IMPRESSION: No acute cardiopulmonary disease. Assessment/Plan Assessment/Plan # acute on chronic respiratory failure # Rule out influenza A & B # Rule out Covid # ADELINE Admit to telemetry unit O2 supplement to keep O2 Sat >92% Med neb treatment Pulmonary consult Cpap at [facility] prn # hypertension Continue with valsartan, Lasix # hyperlipidemia statins Check lipid panel # anxiety depression Continue with citalopram and buspirone # nicotine dependence Smoking cessation counseled Nicotine patch DVT prophylaxis Medical plan discussed with patient Plan discussed with: Patient Date of Service: Mar 05, 2024 Billing Provider: KATIE TAO Common Visit Codes: [id number] INP/OBS CARE (HIGH) KATIE TAO Mar 05, 2024 16:09
[2024-03-05 16:41] LABS: LDL Cholesterol 84 mg/dL (< 100)
[2024-03-05 16:42] LABS: Cholesterol 154 mg/dL (< 200); HDL Cholesterol 57 mg/dL (40-59)
[2024-03-05 16:44] LABS: Triglycerides 166 mg/dL (< 150)
[2024-03-05 18:02] VITALS: PULSE 100; RESP 18; O2SAT 89
[2024-03-05] MEDS: ALBUTEROL SULF 2.5 MG/0.5ML(0.5%) NEB SOLN NEB SCH (18:10)
[2024-03-05] MEDS: IPRATROPIUM BROM 0.5 MG/2.5ML INH SOL NEB SCH (18:11)
[2024-03-05] MEDS: IPRATROPIUM BROM 0.5 MG/2.5ML INH SOL ONE (18:11)
[2024-03-05] MEDS: ALBUTEROL SULF 2.5 MG/0.5ML(0.5%) NEB SOLN ONE (18:11)
[2024-03-05 18:12] VITALS: PULSE 102; RESP 18; O2SAT 96
[2024-03-05 19:46] VITALS: BP 110/59; PULSE 102; RESP 18; TEMP 100.4; O2SAT 90
[2024-03-05] MEDS: NICOTINE 7MG/24HR TOPICAL PATCH TD ONE (20:26)
[2024-03-05] MEDS: busPIRone HCL 10 MG TAB PO SCH (23:10)
[2024-03-05] MEDS: ATORVASTATIN 20 MG TAB PO SCH (23:11)
[2024-03-06] VITALS (9 sets, daily range): BP systolic 109; BP diastolic 60; PULSE 98–119; RESP 18–20; TEMP 98.2; O2SAT 91–99
--- NOTE | 2024-03-06 00:03 | DVHINCON2 ---
Date of service: Mar 05, 2024 Referring Physician James Ibarar MD Reason for Consultation Acute on chronic hypoxic respiratory failure History of Present Illness This 73-year-old woman with past medical history of COPD, hypertension, hyperlipidemia, anxiety, and depression, current smoker, presents to the ED today with a chief complaint of shortness of breath. The patient reports shortness of breath associated with productive cough starting yesterday. The patient reports recent sick contact for influenza. The patient uses CPAP machine at night for ADELINE. She denies dizziness, chest pain, palpitations, shortness of breath, or wheezing. Patient was admitted for further care and pulmonary consultation is requested for evaluation and management due to the above findings. Review of Systems: 14-point review of systems negative unless otherwise noted above. Past Medical History: COPD, hypertension, hyperlipidemia, anxiety, and depression. Past Surgical History: None Medications: Reviewed. Allergies: No known drug allergies. Family History: No family history of premature CAD. No family history of lung disorders. Social History: Current smoker, smokes cigarettes. No alcohol or illicit drug use. Allergies: Coded Allergies: NO KNOWN ALLERGIES (Unverified , 12/15/11) Home Meds Active Scripts Potassium Chloride (POTASSIUM CHLORIDE CR) 10 Meq Tb, 1 TAB PO DAILY for 4 Days, #4 TAB 5 Refills Prov:MARION WALL MD 01/09/24 Sulfamethoxazole W/Trimethopri (Bactrim Ds Tablet) 1 Tab Tb, 1 TAB PO BID for 5 Days, #10 TAB Prov:YULISSA KOO MD 08/13/22 Reported Medications Buspirone Hcl (Buspirone Hcl) 30 Mg Tab, 1 TAB PO BID 03/05/24 Citalopram Hydrobromide (Citalopram Hydrobromide) 40 Mg Tab, 1 TAB PO QAM 03/05/24 Atorvastatin Calcium (ATORVASTATIN CALCIUM) 20 Mg Tab, 1 TAB PO DAILY 03/05/24 Furosemide (Lasix) 20 Mg Tb, 1 TAB PO DAILY, #90 TAB 1 Refill 01/09/24 Amlodipine Besylate (Amlodipine Besylate) 5 Mg Tab, 10 MG PO DAILY for 30 Days, MG 01/09/24 Atorvastatin Calcium (ATORVASTATIN CALCIUM) 40 Mg Tab, 40 MG PO DAILY, TAB 01/08/24 Lorazepam (Ativan) 1 Mg Tab, 1 MG PO PRN 12/15/11 Tramadol Hcl (Tramadol Hcl) 50 Mg Tab, 50 MG PO HS 12/15/11 Valsartan (Diovan) 160 Mg Tab, 160 MG PO DAILY 12/15/11 Current Medications Current Medications Medications (Trade) Dose Ordered Sig/Leann Route PRN Reason Start Time Stop Time Status Last Admin Albuterol (Ventolin Medneb) 2.5 mg Q4HPRN PRN NEB SHORTNESS OF BREATH 03/05/24 16:00 Albuterol (Ventolin Medneb) 2.5 mg Q6HR NEB 03/05/24 18:00 03/05/24 18:10 Ipratropium [place] (Atrovent Medneb) 0.5 mg Q4HPRN PRN NEB SHORTNESS OF BREATH 03/05/24 16:00 Ipratropium [place] (Atrovent Medneb) 0.5 mg Q6HR NEB 03/05/24 18:00 03/05/24 18:11 Furosemide (Lasix Tablet) 20 mg DAILY PO 03/06/24 10:00 Patient Own Medication 40 mg DAILY PO 03/06/24 10:00 03/05/24 16:34 DC Buspirone HCl (Buspar Tablet) 30 mg BID PO 03/05/24 22:00 Patient Own Medication 1 tab QAM PO 03/06/24 07:00 03/05/24 16:34 DC Patient Own Medication 160 mg DAILY PO 03/06/24 10:00 03/05/24 16:34 DC Enoxaparin Sodium (Lovenox) 40 mg DAILY SC 03/06/24 10:00 Nicotine (Nicoderm 7MG/ 24HR) 1 patch DAILY TD 03/06/24 10:00 Atorvastatin Calcium (Lipitor) 40 mg HS PO 03/05/24 22:00 Citalopram Hydrobromide (CeleXA TABLET) 20 mg QAM PO 03/06/24 07:00 Valsartan (Diovan) 160 mg DAILY PO 03/06/24 10:00 Vital Signs Vital Signs Date Time Temp Pulse Resp B/P (MAP) Pulse Ox O2 Delivery O2 Flow Rate FiO2 03/05/24 19:46 100.4 102 18 110/59 90 0.0 100.4 03/05/24 08:12 Nasal Cannula* 28 Physical Exam Gen.: Patient lying in bed in no apparent distress. On supplemental oxygen. Head: Normocephalic, atraumatic. Eyes: EOMI/PERRLA. Ears: Normal hearing. Normal anatomy. Neck/trachea: Trachea midline, supple. Nose: Normal external anatomy. Mouth: Moist mucous membranes. Chest: Decreased air entry bilaterally. No wheezing or rhonchi. Cardiovascular: Positive S1, positive S2. Regular rate and rhythm. Abdomen: Positive bowel sounds in all 4 quadrants. Soft, non-tender, non- distended. : Deferred. Rectal: Deferred. Skin: Warm, dry. Intact. Extremities: 2+ radial pulses bilaterally. No lower extremity edema. Neuro: Awake, alert, oriented x3. No gross motor or sensory deficits. Cranial nerves II through XII intact. Gait not assessed. Labs/Diagnostic Data Labs Test 03/05/24 16:30 03/05/24 07:30 03/05/24 07:08 Range/Units Triglycerides Level 166 H < 150 mg/dL Cholesterol Level 154 < 200 mg/dL LDL Cholesterol 84 < 100 mg/dL HDL Cholesterol 57 40-59 mg/dL Blood Gas Specimen Type Arterial Blood Gas Sample Site Left radial Blood Gas Patient Temperature 37.0 Arterial Blood Date Drawn [id number] Arterial Blood pH 7.398 7.350-7.450 Arterial Blood Partial Pressure CO2 34.4 32.0-45.0 mmHg Arterial Blood Partial Pressure O2 102.5 83.0-108.0 mmHg Arterial Blood HCO3 20.7 L 21.0-28.0 mmol/L Arterial Blood Oxygen Saturation 97.9 94.0-98.0 % Arterial Blood Base Excess -3.1 L -2.0-3.0 mmol/L Arterial Blood Oxyhemoglobin 95.0 94.0-98.0 % Arterial Blood Carboxyhemoglobin 2.2 H 0.5-1.5 % Arterial Blood Methemoglobin 0.8 0.0-1.5 % Carloz Test Yes Blood Gas Total Hemoglobin 17.00 H 12.0-16.0 g/dL Blood Gas Liter Flow 2.00 Blood Gas Modality Nasal cannula FiO2 % 28.0 White Blood Count 12.0 H 4.4-10.8 10^3/uL Red Blood Count 5.13 4.0-5.20 10^6/uL Hemoglobin 16.6 H 12.2-16.2 g/dL Hematocrit 49.4 H 36.0-46.0 % Mean Corpuscular Volume 96.2 80.0-100.0 fL Mean Corpuscular Hemoglobin 32.4 H 28.0-32.0 pg Mean Corpuscular Hemoglobin Concent 33.7 32.0-36.0 g/dL Red Cell Distribution Width 13.6 11.8-14.3 % Platelet Count 213 140-450 10^3/uL Mean Platelet Volume 8.5 6.9-10.8 fL Neutrophils (%) (Auto) 89.8 H 37.0-80.0 % Lymphocytes (%) (Auto) 4.2 L 10.0-50.0 % Monocytes (%) (Auto) 5.3 0.0-12.0 % Eosinophils (%) (Auto) 0.3 0.0-7.0 % Basophils (%) (Auto) 0.4 0.0-2.0 % Neutrophils # (Auto) 10.8 H 1.6-8.6 10 ^3/uL Lymphocytes # (Auto) 0.5 0.4-5.4 10 ^3/uL Monocytes # (Auto) 0.6 0-1.3 10 ^3/uL Eosinophils # (Auto) 0 0-0.8 10 ^3/uL Basophils # (Auto) 0 0-0.2 10 ^3/uL Nucleated Red Blood Cells 0.1 % Sodium Level 137 136-145 mmol/L Potassium Level 4.0 3.5-5.1 mmol/L Chloride Level 104 98-107 mmol/L Carbon Dioxide Level 29 20-31 mmol/L Anion Gap 4 L 5-15 Blood Urea Nitrogen 6 L 9-23 mg/dL Creatinine 0.58 0.550-1.02 mg/dL Glomerular Filtration Rate Calc 95 >90 mL/min BUN/Creatinine Ratio 10.3 10.0-20.0 Serum Glucose 109 H 74-106 mg/dL Calcium Level 10.8 H 8.7-10.4 mg/dL Troponin I High Sensitivity < 3 L </=34 ng/L B-Type Natriuretic Peptide 11.42 0-100 pg/mL Assessment Impression: Acute on chronic hypoxic respiratory failure Rule out influenza A & B Rule out COVID ADELINE Nicotine dependence Obesity BMI 36.4 Plan: Supplemental oxygen Titrate to keep O2 sats above 92%. Continue bronchodilators. Monitor renal function. Monitor electrolytes. Supplement as necessary. Monitor ins and outs. Smoking cessation discussed for greater than 10 minutes Diet and lifestyle modifications for weight reduction Obesity - complicates all care DVT prophylaxis. Prognosis: Poor given patient's multiple co-morbidities. Rest of plan per hospitalist and other consultants. Thank you, Dr. Ibarra, for allowing me to participate in this patient's care. Further recommendations will depend on the patient's clinical course. Please do not hesitate to contact me if you have any questions or concerns. This medical document was created using an electronic medical record system with [email or web address] dictation system. Although these documentations are being carefully reviewed, there may still be some phonetic and typographical changes. The errors are purely typographical, due to imperfection on the software program, and do not reflect any compromise in the patient's medical care. Plan discussed with: Patient, Other (RN/MD Ibarra) MONTSE PAINTER MD Mar 06, 2024 00:03
[2024-03-06] MEDS: IPRATROPIUM BROM 0.5 MG/2.5ML INH SOL ONE ×3 (00:27→11:15)
[2024-03-06] MEDS: ALBUTEROL SULF 2.5 MG/0.5ML(0.5%) NEB SOLN ONE ×3 (00:27→11:15)
[2024-03-06 01:42] LABS: COVID19 ANTIGEN SOFIA FIA NEGATIVE (NEGATIVE); Rapid Influenza A Negative (Negative); Rapid Influenza B Negative (Negative)
[2024-03-06 02:55] LABS: Urine Bacteria FEW /hpf (None Seen); Urine Blood Negative /uL (Negative); Urine Clarity Turbid (Clear); Urine Color Yellow (Yellow); Urine Hyaline Cast FEW /lpf (0 - 2); Urine Mucus FEW (None Seen); Urine Protein, UAD TRACE (Negative); Urine Specific Gravity 1.023 (1.001-1.035); Urine Squamous Epithelial Cell FEW /hpf (<5); Urine Urobilinogen Normal (Negative); Urine WBC 25 /hpf (0 - 5); Urine pH 5.5 (5.0-9.0)
[2024-03-06] MEDS ORDERED: PATIENTS OWN MEDICATION (Citalopram Hydrobromide 1 TAB) PO SCH (07:00)
[2024-03-06] MEDS: CITALOPRAM HYDROBR 20 MG TAB PO SCH (07:00)
[2024-03-06] MEDS ORDERED: VALSARTAN 160 MG PO SCH (10:00)
[2024-03-06] MEDS ORDERED: FUROSEMIDE 20 MG TAB PO SCH (10:00)
[2024-03-06] MEDS: VALSARTAN 80 MG TAB PO SCH (10:00)
[2024-03-06] MEDS: ENOXAPARIN SOD 40 MG/0.4 ML SYRINGE SC SCH (10:00)
[2024-03-06] MEDS ORDERED: PATIENTS OWN MEDICATION (Atorvastatin Calcium 40 MG) PO SCH (10:00)
[2024-03-06] MEDS: NICOTINE 7MG/24HR TOPICAL PATCH TD SCH (10:00)
== END 2024-03-06 11:53 | disposition left against medical advice (07) | DRG 189 ==
LOC: EDBD 06:06 → EDUNIT# 06:06 → ER 06:06 → TELE 15:57 → ER 16:10 → TELE 16:10
PROVIDERS: ADMIT Registered Nurse; ATTEND Internal Medicine
DX: J96.21 Acute and chronic respiratory failure with hypoxia (principal); E78.5 Hyperlipidemia, unspecified; F17.210 Nicotine dependence, cigarettes, uncomplicated; F32.A Depression, unspecified; I10 Essential (primary) hypertension; F41.9 Anxiety disorder, unspecified; G47.33 Obstructive sleep apnea (adult) (pediatric); J11.1 Influenza due to unidentified influenza virus with other respiratory manifestations; Z53.29 Procedure and treatment not carried out because of patient's decision for other reasons; J44.9 Chronic obstructive pulmonary disease, unspecified; Z20.822 Contact with and (suspected) exposure to COVID-19; E66.9 Obesity, unspecified; Z71.6 Tobacco abuse counseling; Z68.36 Body mass index [BMI] 36.0-36.9, adult
CPT/HCPCS: 36415; 36600; 71045; 80048; 80061; 81001; 82805; 83880; 84484; 85025; 87040; 87086; 87426; 87804; 93005; 94640; 96374; 96375; 99291; 99292; G0378